=== PATIENT | male | born 1975 | race Caucasian/White ===

== ENCOUNTER 2021-05-21 05:33 | Inpatient (IN) | payer MEDICAID ==
[2021-05-21] MEDS ORDERED: Sodium Chloride 0.9% 10 ML Syringe FLUSH PRN (06:26)
[2021-05-21] MEDS ORDERED: Ondansetron 4 MG/2 ML SDV IVPUSH ONE (06:26)
[2021-05-21] MEDS ORDERED: Sodium Chloride 0.9% 1,000 ML IV ONE ×3 (06:26→07:09)
[2021-05-21] MEDS ORDERED: Ketorolac 15 MG/ML SDV IVPUSH ONE (06:26)
[2021-05-21] MEDS ORDERED: Acetaminophen 325 MG Tab PO ONE (06:29)
[2021-05-21 06:38] LABS: CARBON DIOXIDE,CO2 20.6 mmol/L (21.0-32.0); POTASSIUM,K 3.6 mmol/L (3.5-5.1)
[2021-05-21] MEDS: Sodium Chloride 0.9% 2.5 ML Syringe FLUSH PRN ×2 (06:53→12:25)
[2021-05-21] MEDS ORDERED: Piperacillin/Tazobactam 3.375 GM in Sodium Chloride 0.9% 50 ML IV ONE (06:55)
--- NOTE | 2021-05-21 07:07 | EDM.PDOC ---
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 Patient reports that he generally has a paracentesis as well as a thoracentesis scheduled monthly in [place] secondary to ascites and pleural effusions on the right side from his primary biliary sclerosis/cirrhosis. Patient reports his last paracentesis/thoracentesis was performed approximately 3 weeks ago. Patient presents to the ER today with fevers, hot and cold sweats, and generalized weakness x1 day. Patient reports he has no abdominal pain or discomfort. Patient reports he does feel that his abdomen is bloated and he feels uncomfortable from the bloated sensation and gets short of breath when he lays flat which is typical sensation of when he has ascites and pleural effusions requiring a paracentesis and thoracentesis. Patient denies any vomiting or change in bowels. Patient denies any dysuria, frequency, urgency. Patient reports decreased urinary output. Patient reports normal p.o. intake. Patient has any cough cold or rhinorrhea. Patient reports that he has not had his Covid vaccine. Patient reports that he had multiple negative Covid test in the past. Review of systems: As per history of present illness and below otherwise all systems reviewed and negative. Past medical history: As per history of present illness and as reviewed below otherwise noncontributory. Surgical history: As per history of present illness and as reviewed below otherwise noncontributory. Social history: No reported history of drug abuse. Family history: As per history of present illness and as reviewed below otherwise noncontributory. Physical exam: This patient was seen and evaluated during the 2019 SARS-CoV-2 novel coronavirus pandemic period. Community viral transmission is ongoing at time of this encounter and the emergency department is operating under pandemic response procedures. Constitutional: Patient is oriented to person, place, and time. Appears well- developed and well-nourished. No distress. HEENT: Dry mucous membranes Head: Normocephalic and atraumatic Eyes: Right eye exhibits no discharge. Left eye exhibits no discharge. Scleral icterus Neck: Normal range of motion. No tracheal deviation present. Cardiovascular: Tachycardic with regular rhythm. Pulmonary: Effort normal, no respiratory distress. Abdominal: Soft, distended, no rebound or guarding, no tenderness to palpation. Musculoskeletal: Normal range of motion Neurologic: Alert and oriented to person, place and time. Skin: [place], warm and dry. Jaundiced, warm to touch Psychiatric: Normal mood and affect. Behavior is normal. Judgment and thought content normal. Nursing note and vital signs have been reviewe Diagnostics: EKG: As interpreted by ER physician: [place]: Nonspecific ST-T wave abnormalities Normal axis No evidence of ST elevation NV Sinus tachycardia with a heart of 125 CBC, CMP, D-dimer, blood cultures x2, urinalysis, lactic acid, chest x-ray, INR, PTT Therapeutics: Toradol 15 mg IV NSS x1 L Tylenol 650 mg p.o. 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 Patient's presentation is concerning for sepsis. A sepsis work-up has been initiated here in the ED and the patient will get empiric treatment with Zosyn. Patient will need paracentesis for therapeutic as well as diagnostic purposes. Patient will be started on an NSS x30 mils per kilo. 7 AM: Care will be signed out to oncoming physician Dr. Amador. Definitive disposition and diagnosis as appropriate pending reevaluation and review of above. - Related Data Allergies Allergy/AdvReac Type Severity Reaction Status Date / Time cantaloupe Allergy Other Verified 05/21/21 06:00 kiwi Allergy Other Verified 05/21/21 06:00 nitrous oxide Allergy Other Verified 05/21/21 06:00 Home Meds: Home Meds Cholecalciferol (Vitamin D3) [Vitamin D3] 2,000 unit PO DAILY 05/21/21 [History] Eplerenone [Inspra] 50 mg PO DAILY 05/21/21 [History] Furosemide [Lasix] 40 mg PO DAILY 05/21/21 [History] Loperamide [Imodium] 2 mg PO TID PRN 05/21/21 [History] Rifaximin [Xifaxan] 550 mg PO BID 05/21/21 [History] methocarbamoL [Methocarbamol] 500 mg PO TID PRN 05/21/21 [History] Past Medical History Other Gastrointestinal History: UC. PSC - Infectious Disease History Infectious Disease History: Reports: Chicken Pox ED ROS GENERAL - Review of Systems Review Of Systems: See Below ED EXAM, GENERAL - Physical Exam Exam: See Below Departure - Departure Disposition: Refer to Observation Clinical Impression: Sepsis, Liver failure - Discharge Information Referrals: PCP,None [Primary Care Provider] - Forms: ED Department Discharge Sepsis Event Note (ED) - Evaluation Sepsis Screening Result: Possible Sepsis Risk <Mayur Amador - Last Filed: 05/21/21 12:26> ED RESPIRATORY PROCEDURES - Endotracheal Intubation Pre-Oxygenation: Assisted with BVM, 100% FiO2 Confirmed By: CO2 Indicator, Bilateral Breath Sounds Tube Secured By: By Provider Course - Vital Signs Text/Narrative:: 7:39 AM patient accepted in transfer from my partner whose shift has ended. He is being treated as sepsis. He has a lactate over 11. When he has been septic before its been from his peritoneal fluid. Patient has bedside ultrasound showing he has a massive amount of fluid in the bowel is in the posterior part of his abdomen. Plan peritoneal tap and fluid for analysis. We will also leave catheter and allow him with therapeutic drainage of is much as possible. He is gotten as much of 10 L in the past. Coags are adequate. 1021 after paracentesis at this time we have gotten 3 L of fluid off. Were unable to get the catheter to drain to suction so is draining into a dependent vessel. I discussed the case with Dr. Garza and he is coming to see the patient to decide if he thinks we can adequately manage him here without GI consult. Patient blood pressure has been between 60 and 90. He did tolerate Dilaudid. He tolerated 4 L of fluid being removed by gravity. Discussed with Dr. Garza who will see the patient and make a determination as to disposition. Due to a high probability of clinically significant, life threatening deterioration, the patient required my highest level of preparedness to intervene emergently and I personally spent this critical care time directly and personally managing the patient. This critical care time included obtaining a history; examining the patient; pulse oximetry; ordering and review of studies; arranging urgent treatment with development of a management plan; evaluation of patient's response to treatment; frequent reassessment; and, discussions with other providers. This critical care time was performed to assess and manage the high probability of imminent, life-threatening deterioration that could result in multi-organ failure. It was exclusive of separately billable procedures and treating other patients and teaching time..50 minutes 11:25 AM the patient has 5 L of fluid from his peritoneal tap. More albumin has been ordered. 12:07 PM patient's condition is stabilized somewhat he has had 7 L out and he is continuing to drain vigorously. Albumin repeat ordered Last Recorded V/S: Last Vital Signs Temp 36.7 C 05/21/21 11:49 Pulse 89 05/21/21 11:49 Resp 18 05/21/21 11:49 BP 83/48 L 05/21/21 11:49 Pulse Ox 98 05/21/21 11:49 - Orders/Labs/Meds Orders: Active Orders 24 hr Category Date Time Status Admission Status [Patient Status] [ADT] Stat ADT 05/21/21 12:24 Ordered EKG Documentation Completion [RC] AM Care 05/21/21 06:26 Active BODY FLUID, LIPASE Stat Lab 05/21/21 08:38 Received BODY FLUID, SPECIFIC GRAVITY Stat Lab 05/21/21 08:38 Received BODY FLUID, TOTAL BILIRUBIN Stat Lab 05/21/21 08:38 Received CULTURE BLOOD [BC] Stat Lab 05/21/21 05:51 Received CULTURE BLOOD [BC] Stat Lab 05/21/21 07:04 Received CULTURE, ANAEROBE & AEROBE [MREF] Stat Lab 05/21/21 08:38 Received PROCALCITONIN [REF] Stat Lab 05/21/21 05:51 Received Albumin 25% [Flexbumin 25%] 12.5 gm Med 05/21/21 12:15 Active Premix Bag 1 bag IV ONETIME Sodium Chloride 0.9% [Saline Flush] Med 05/21/21 06:26 Active 10 ml FLUSH ASDIRECTED PRN Sodium Chloride 0.9% [Saline Flush] Med 05/21/21 06:26 Active 2.5 ml FLUSH ASDIRECTED PRN Blood Culture x2 Reflex Set [OM.PC] Stat Oth 05/21/21 06:27 Ordered Saline Lock Insert [OM.PC] Stat Oth 05/21/21 06:26 Ordered Medication Orders Albumin Human 12.5 gm/ Premix 50 mls @ 100 mls/hr IV ONETIME ONE Stop: 05/21/21 12:44 Sodium Chloride (Sodium Chloride 0.9% 10 Ml Syringe) 10 ml FLUSH ASDIRECTED PRN PRN Reason: Keep Vein Open Last Admin: 05/21/21 06:53 Dose: 10 ml Documented by: IVELISSE Sodium Chloride (Sodium Chloride 0.9% 2.5 Ml Syringe) 2.5 ml FLUSH ASDIRECTED PRN PRN Reason: Keep Vein Open Last Admin: 05/21/21 06:53 Dose: 2.5 ml Documented by: IVELISSE Labs: Laboratory Tests 05/21/21 05/21/21 05/21/21 Range/Units 05:51 05:51 05:51 WBC 7.17 (4.0-11.0) K/uL RBC 4.38 L (4.50-5.90) M/uL Hgb 9.0 L (13.0-17.0) g/dL Hct 30.6 L (38.0-50.0) % MCV 69.9 L (80.0-98.0) fL MCH 20.5 L (27.0-32.0) pg MCHC 29.4 L (31.0-37.0) g/dL RDW Std Deviation 59.6 (28.0-62.0) fl RDW Coeff of Shaq 24 H (11.0-15.0) % Plt Count 97 L (150-400) K/uL Neut % (Auto) 90.9 H (48.0-80.0) % Lymph % (Auto) 6.7 L (16.0-40.0) % [place] % (Auto) 1.4 (0.0-15.0) % Eos % (Auto) 0.4 (0.0-7.0) % Baso % (Auto) 0.6 (0.0-1.5) % Neut # (Auto) 6.5 H (1.4-5.7) K/uL Lymph # (Auto) 0.5 L (0.6-2.4) K/uL [place] # (Auto) 0.1 (0.0-0.8) K/uL Eos # (Auto) 0.0 (0.0-0.7) K/uL Baso # (Auto) 0.0 (0.0-0.1) K/uL Nucleated RBC % 0.0 /100WBC Nucleated RBCs # 0 K/uL INR APTT (18.6-31.3) SEC D-Dimer, Quantitative (0.0-0.50) mg/L FEU Sodium 136 (136-148) mmol/L Potassium 3.6 (3.5-5.1) mmol/L Chloride 99 (98-107) mmol/L Carbon Dioxide 20.6 L (21.0-32.0) mmol/L BUN 25 H (7.0-18.0) mg/dL Creatinine 1.7 H (0.8-1.3) mg/dL Est Cr Clr Drug Dosing 64.47 mL/min Estimated GFR (MDRD) 44.0 ml/min Glucose 78 (74-106) mg/dL Lactic Acid (0.4-2.0) mmol/L Calcium 7.8 L (8.5-10.1) mg/dL Magnesium 1.8 (1.8-2.4) mg/dL Total Bilirubin 8.3 H (0.2-1.0) mg/dL AST 122 H (15-37) IU/L ALT 43 (14-63) IU/L Alkaline Phosphatase 527 H (46-116) U/L Total Protein 6.8 (6.4-8.2) g/dL Albumin 2.0 L (3.4-5.0) g/dL Globulin 4.8 H (2.6-4.0) g/dL Albumin/Globulin Ratio 0.4 L (0.9-1.6) Lipase 69 L (73-393) U/L Urine Color Urine Appearance Urine pH (5.0-8.0) Ur Specific [place] (1.001-1.035) Urine Protein (NEGATIVE) mg/dL Urine Glucose (UA) (NEGATIVE) mg/dL Urine Ketones (NEGATIVE) mg/dL Urine Occult Blood (NEGATIVE) Urine Nitrite (NEGATIVE) Urine Bilirubin (NEGATIVE) Urine Ictotest Urine Urobilinogen (<2.0) EU/dL Ur Leukocyte Esterase (NEGATIVE) Fluid Type Fluid Color Fluid Appearance Fluid pH Fluid WBC /uL Fluid RBC /uL Fluid Mononuclear Cell % Fl Polymorphonucl Cell % Fluid Glucose mg/dL Fluid Total Protein g/dL SARS-CoV-2 RNA (SHADY) NEGATIVE (NEGATIVE) 05/21/21 05/21/21 05/21/21 Range/Units 05:51 05:51 05:51 WBC (4.0-11.0) K/uL RBC (4.50-5.90) M/uL Hgb (13.0-17.0) g/dL Hct (38.0-50.0) % MCV (80.0-98.0) fL MCH (27.0-32.0) pg MCHC (31.0-37.0) g/dL RDW Std Deviation (28.0-62.0) fl RDW Coeff of Shaq (11.0-15.0) % Plt Count (150-400) K/uL Neut % (Auto) (48.0-80.0) % Lymph % (Auto) (16.0-40.0) % [place] % (Auto) (0.0-15.0) % Eos % (Auto) (0.0-7.0) % Baso % (Auto) (0.0-1.5) % Neut # (Auto) (1.4-5.7) K/uL Lymph # (Auto) (0.6-2.4) K/uL [place] # (Auto) (0.0-0.8) K/uL Eos # (Auto) (0.0-0.7) K/uL Baso # (Auto) (0.0-0.1) K/uL Nucleated RBC % /100WBC Nucleated RBCs # K/uL INR 1.33 APTT 26.4 (18.6-31.3) SEC D-Dimer, Quantitative 2.92 H (0.0-0.50) mg/L FEU Sodium (136-148) mmol/L Potassium (3.5-5.1) mmol/L Chloride (98-107) mmol/L Carbon Dioxide (21.0-32.0) mmol/L BUN (7.0-18.0) mg/dL Creatinine (0.8-1.3) mg/dL Est Cr Clr Drug Dosing mL/min Estimated GFR (MDRD) ml/min Glucose (74-106) mg/dL Lactic Acid 11.6 H* (0.4-2.0) mmol/L Calcium (8.5-10.1) mg/dL Magnesium (1.8-2.4) mg/dL Total Bilirubin (0.2-1.0) mg/dL AST (15-37) IU/L ALT (14-63) IU/L Alkaline Phosphatase (46-116) U/L Total Protein (6.4-8.2) g/dL Albumin (3.4-5.0) g/dL Globulin (2.6-4.0) g/dL Albumin/Globulin Ratio (0.9-1.6) Lipase (73-393) U/L Urine Color Urine Appearance Urine pH (5.0-8.0) Ur Specific [place] (1.001-1.035) Urine Protein (NEGATIVE) mg/dL Urine Glucose (UA) (NEGATIVE) mg/dL Urine Ketones (NEGATIVE) mg/dL Urine Occult Blood (NEGATIVE) Urine Nitrite (NEGATIVE) Urine Bilirubin (NEGATIVE) Urine Ictotest Urine Urobilinogen (<2.0) EU/dL Ur Leukocyte Esterase (NEGATIVE) Fluid Type Fluid Color Fluid Appearance Fluid pH Fluid WBC /uL Fluid RBC /uL Fluid Mononuclear Cell % Fl Polymorphonucl Cell % Fluid Glucose mg/dL Fluid Total Protein g/dL SARS-CoV-2 RNA (SHADY) (NEGATIVE) 05/21/21 05/21/21 05/21/21 Range/Units 07:05 08:38 08:38 WBC (4.0-11.0) K/uL RBC (4.50-5.90) M/uL Hgb (13.0-17.0) g/dL Hct (38.0-50.0) % MCV (80.0-98.0) fL MCH (27.0-32.0) pg MCHC (31.0-37.0) g/dL RDW Std Deviation (28.0-62.0) fl RDW Coeff of Shaq (11.0-15.0) % Plt Count (150-400) K/uL Neut % (Auto) (48.0-80.0) % Lymph % (Auto) (16.0-40.0) % [place] % (Auto) (0.0-15.0) % Eos % (Auto) (0.0-7.0) % Baso % (Auto) (0.0-1.5) % Neut # (Auto) (1.4-5.7) K/uL Lymph # (Auto) (0.6-2.4) K/uL [place] # (Auto) (0.0-0.8) K/uL Eos # (Auto) (0.0-0.7) K/uL Baso # (Auto) (0.0-0.1) K/uL Nucleated RBC % /100WBC Nucleated RBCs # K/uL INR APTT (18.6-31.3) SEC D-Dimer, Quantitative (0.0-0.50) mg/L FEU Sodium (136-148) mmol/L Potassium (3.5-5.1) mmol/L Chloride (98-107) mmol/L Carbon Dioxide (21.0-32.0) mmol/L BUN (7.0-18.0) mg/dL Creatinine (0.8-1.3) mg/dL Est Cr Clr Drug Dosing mL/min Estimated GFR (MDRD) ml/min Glucose (74-106) mg/dL Lactic Acid (0.4-2.0) mmol/L Calcium (8.5-10.1) mg/dL Magnesium (1.8-2.4) mg/dL Total Bilirubin (0.2-1.0) mg/dL AST (15-37) IU/L ALT (14-63) IU/L Alkaline Phosphatase (46-116) U/L Total Protein (6.4-8.2) g/dL Albumin (3.4-5.0) g/dL Globulin (2.6-4.0) g/dL Albumin/Globulin Ratio (0.9-1.6) Lipase (73-393) U/L Urine Color DARK YELLOW Urine Appearance CLEAR Urine pH 6.0 (5.0-8.0) Ur Specific [place] 1.020 (1.001-1.035) Urine Protein NEGATIVE (NEGATIVE) mg/dL Urine Glucose (UA) NEGATIVE (NEGATIVE) mg/dL Urine Ketones NEGATIVE (NEGATIVE) mg/dL Urine Occult Blood NEGATIVE (NEGATIVE) Urine Nitrite NEGATIVE (NEGATIVE) Urine Bilirubin MODERATE H (NEGATIVE) Urine Ictotest POSITIVE Urine Urobilinogen 0.2 (<2.0) EU/dL Ur Leukocyte Esterase NEGATIVE (NEGATIVE) Fluid Type PER PER Fluid Color YELLOW Fluid Appearance CLEAR Fluid pH 8.0 Fluid WBC 59 /uL Fluid RBC < 3000 /uL Fluid Mononuclear Cell 83 % Fl Polymorphonucl Cell 17 % Fluid Glucose 111 mg/dL Fluid Total Protein 0.7 g/dL SARS-CoV-2 RNA (SHADY) (NEGATIVE) 05/21/21 Range/Units 10:45 WBC (4.0-11.0) K/uL RBC (4.50-5.90) M/uL Hgb (13.0-17.0) g/dL Hct (38.0-50.0) % MCV (80.0-98.0) fL MCH (27.0-32.0) pg MCHC (31.0-37.0) g/dL RDW Std Deviation (28.0-62.0) fl RDW Coeff of Shaq (11.0-15.0) % Plt Count (150-400) K/uL Neut % (Auto) (48.0-80.0) % Lymph % (Auto) (16.0-40.0) % [place] % (Auto) (0.0-15.0) % Eos % (Auto) (0.0-7.0) % Baso % (Auto) (0.0-1.5) % Neut # (Auto) (1.4-5.7) K/uL Lymph # (Auto) (0.6-2.4) K/uL [place] # (Auto) (0.0-0.8) K/uL Eos # (Auto) (0.0-0.7) K/uL Baso # (Auto) (0.0-0.1) K/uL Nucleated RBC % /100WBC Nucleated RBCs # K/uL INR APTT (18.6-31.3) SEC D-Dimer, Quantitative (0.0-0.50) mg/L FEU Sodium (136-148) mmol/L Potassium (3.5-5.1) mmol/L Chloride (98-107) mmol/L Carbon Dioxide (21.0-32.0) mmol/L BUN (7.0-18.0) mg/dL Creatinine (0.8-1.3) mg/dL Est Cr Clr Drug Dosing mL/min Estimated GFR (MDRD) ml/min Glucose (74-106) mg/dL Lactic Acid 1.7 (0.4-2.0) mmol/L Calcium (8.5-10.1) mg/dL Magnesium (1.8-2.4) mg/dL Total Bilirubin (0.2-1.0) mg/dL AST (15-37) IU/L ALT (14-63) IU/L Alkaline Phosphatase (46-116) U/L Total Protein (6.4-8.2) g/dL Albumin (3.4-5.0) g/dL Globulin (2.6-4.0) g/dL Albumin/Globulin Ratio (0.9-1.6) Lipase (73-393) U/L Urine Color Urine Appearance Urine pH (5.0-8.0) Ur Specific [place] (1.001-1.035) Urine Protein (NEGATIVE) mg/dL Urine Glucose (UA) (NEGATIVE) mg/dL Urine Ketones (NEGATIVE) mg/dL Urine Occult Blood (NEGATIVE) Urine Nitrite (NEGATIVE) Urine Bilirubin (NEGATIVE) Urine Ictotest Urine Urobilinogen (<2.0) EU/dL Ur Leukocyte Esterase (NEGATIVE) Fluid Type Fluid Color Fluid Appearance Fluid pH Fluid WBC /uL Fluid RBC /uL Fluid Mononuclear Cell % Fl Polymorphonucl Cell % Fluid Glucose mg/dL Fluid Total Protein g/dL SARS-CoV-2 RNA (SHADY) (NEGATIVE) Meds: Medications Generic Name Dose Route Start Last Admin Trade Name Freq PRN Reason Stop Dose Admin Albumin Human 12.5 gm/ Premix 50 mls @ 100 mls/hr 05/21/21 12:15 IV 05/21/21 12:44 ONETIME ONE Sodium Chloride 10 ml 05/21/21 06:26 05/21/21 06:53 Sodium Chloride 0.9% 10 Ml Syringe FLUSH 10 ml ASDIRECTED PRN Administration Keep Vein Open Sodium Chloride 2.5 ml 05/21/21 06:26 05/21/21 06:53 Sodium Chloride 0.9% 2.5 Ml Syringe FLUSH 2.5 ml ASDIRECTED PRN Administration Keep Vein Open Discontinued Medications Generic Name Dose Route Start Last Admin Trade Name Freq PRN Reason Stop Dose Admin Acetaminophen 650 mg 05/21/21 06:29 05/21/21 06:54 Acetaminophen 325 Mg Tab PO 05/21/21 06:30 650 mg NOW ONE Administration Hydromorphone HCl 1 mg 05/21/21 09:40 05/21/21 09:51 Hydromorphone 1 Mg/Ml Syringe IVPUSH 05/21/21 09:41 1 mg ONETIME ONE Administration Hydromorphone HCl Confirm 05/21/21 09:41 05/21/21 10:46 Hydromorphone 1 Mg/Ml Syringe Administered 05/21/21 09:42 Not Given Dose 1 mg .ROUTE .STK-MED ONE Sodium Chloride 1,000 mls @ 999 mls/hr 05/21/21 06:26 05/21/21 06:53 Normal Saline IV 05/21/21 07:26 999 mls/hr .Bolus ONE Administration Piperacillin Sod/Tazobactam 50 mls @ 100 mls/hr 05/21/21 06:55 05/21/21 07:49 Sod 3.375 gm/ Sodium Chloride IV 05/21/21 07:24 100 mls/hr ONETIME ONE Administration Sodium Chloride 1,000 mls @ 999 mls/hr 05/21/21 07:09 05/21/21 07:58 Normal Saline IV 05/21/21 08:09 999 mls/hr .Bolus ONE Administration Sodium Chloride 1,000 mls @ 999 mls/hr 05/21/21 07:09 05/21/21 07:55 Normal Saline IV 05/21/21 08:09 999 mls/hr .Bolus ONE Administration Albumin Human 25 gm/ Premix 100 mls @ 100 mls/hr 05/21/21 08:15 05/21/21 08:22 IV 05/21/21 09:14 100 mls/hr ONETIME ONE Administration Norepinephrine Bitartrate Confirm 05/21/21 08:15 05/21/21 10:46 Norepinephr-0.9% Nacl 4 Mg/250 Administered 05/21/21 08:16 Not Given Dose 4 mg in 250 mls @ as directed IV .STK-MED ONE Albumin Human 12.5 gm/ Premix 50 mls @ 100 mls/hr 05/21/21 11:30 05/21/21 11:33 IV 05/21/21 11:59 100 mls/hr ONETIME ONE Administration Ketorolac Tromethamine 15 mg 05/21/21 06:26 05/21/21 06:54 Ketorolac 15 Mg/Ml Sdv IVPUSH 05/21/21 06:27 15 mg ONETIME ONE Administration Lidocaine HCl 10 ml 05/21/21 07:35 05/21/21 10:47 Lidocaine 1% 10 Ml Mdv INJECT 05/21/21 07:36 Not Given ONETIME ONE Ondansetron HCl 4 mg 05/21/21 06:26 05/21/21 06:54 Ondansetron 4 Mg/2 Ml Sdv IVPUSH 05/21/21 06:27 4 mg ONETIME ONE Administration Departure - Departure Time of Disposition: 12:26 Condition: Good Sepsis Event Note (ED) - Focused Exam Vital Signs: Vital Signs Temp Temp Pulse Resp BP Pulse Ox 05/21/21 11:49 36.7 C 89 18 83/48 L 98 05/21/21 11:23 86 17 85/45 L 97 05/21/21 11:02 84 18 82/42 L 98 05/21/21 10:47 87 18 84/49 L 99 05/21/21 10:29 37.0 C 92 18 76/36 L 97 05/21/21 10:05 95 18 92/49 L 98 05/21/21 09:40 97 18 90/41 L 97 05/21/21 09:20 103 H 18 70/28 L 98 05/21/21 09:05 103 H 17 85/47 L 97 05/21/21 08:50 100 18 76/39 L 96 05/21/21 08:35 101 H 77/45 L 97 05/21/21 08:24 103 H 17 77/37 L 99 05/21/21 08:10 108 H 17 69/37 L 94 L 05/21/21 08:01 104 H 18 82/39 L 96 05/21/21 07:31 105 H 18 86/43 L 95 05/21/21 07:02 110 H 18 91/46 L 95 05/21/21 06:54 38.2 C H 05/21/21 06:25 122 H 18 85/47 L 95 05/21/21 06:01 38.2 C H 136 H 32 H 92/53 L 96 - My Orders Last 24 Hours: My Active Orders 05/21/21 08:38 BODY FLUID, LIPASE Stat BODY FLUID, SPECIFIC GRAVITY Stat BODY FLUID, TOTAL BILIRUBIN Stat CULTURE, ANAEROBE & AEROBE [MREF] Stat 05/21/21 12:15 Albumin 25% [Flexbumin 25%] 12.5 gm Premix Bag 1 bag IV ONETIME 05/21/21 12:24 Admission Status [Patient Status] [ADT] Stat - Assessment/Plan Last 24 Hours: My Active Orders 05/21/21 08:38 BODY FLUID, LIPASE Stat BODY FLUID, SPECIFIC GRAVITY Stat BODY FLUID, TOTAL BILIRUBIN Stat CULTURE, ANAEROBE & AEROBE [MREF] Stat 05/21/21 12:15 Albumin 25% [Flexbumin 25%] 12.5 gm Premix Bag 1 bag IV ONETIME 05/21/21 12:24 Admission Status [Patient Status] [ADT] Stat Paracentesis - Paracentesis Paracentesis Indication: ascites Location: RLQ Skin prep: Sterile Drapes, Chlorhexidine Ultrasound guided: Yes Local anesthesia: lidocaine 1 % Local anesthesia volume: 5cc Number of Attempts: 1 Device Used: 8 Fr kit device Fluid: yellow, clear Fluids sent: gram stain and culture, cell count, protein, glucose Complications: No Dressing: adhesive dressing
--- NOTE | 2021-05-21 07:26 | CR ---
HISTORY: Shortness of breath. COMPARISON: None. FINDINGS: Portable frontal view of the chest. There is elevation of the right hemidiaphragm. No focal infiltrate. Heart size and pulmonary vascularity appear within normal limits. Dictated by Debra Mcallister MD @ 05/21/2021 7:24:[address] Debra Mcallister @ May 21 2021 7:24AM
[2021-05-21] MEDS ORDERED: Lidocaine 1% 10 ML MDV INJECT ONE (07:35)
[2021-05-21] MEDS ORDERED: Albumin 25% 12.5 GM/50 ML Bag IV ONE ×4 (08:04→13:51)
[2021-05-21] MEDS ORDERED: Albumin 25% 25 GM in Premix Bag 1 BAG IV ONE (08:15)
[2021-05-21] MEDS ORDERED: HYDROmorphone 1 MG/ML Syringe IVPUSH ONE (09:40)
[2021-05-21] MEDS ORDERED: HYDROmorphone 1 MG/ML Syringe ONE (09:41)
[2021-05-21] MEDS ORDERED: Albumin 25% 12.5 GM in Premix Bag 1 BAG IV ONE ×3 (11:30→14:00)
--- NOTE | 2021-05-21 15:34 | PCM.HP.2 ---
H&P History of Present Illness - General Date of Service: 05/21/21 Admit Problem/Dx: Admission Diagnosis/Problem Admission Diagnosis/Problem Ascites - History of Present Illness Initial Comments - Free Text/Narative: 46 yo male with pmh of liver cirhosis who presents to the ED with complaints of abdomen distension and shortness of breath. PAtient reports recurrrent ascities for which he has monthly thoracentesis and paracentesis. His last paracenteiss was a month ago and he had 10 L drained. IN the ED he ws noted to have a temperate of 38.2, HR of 120s, BP in the 80s-90s systolic. His lactic acid ws 11. He was given 4 liters of fluid. Theraputic paracentesis was performed by ED physicain and 8 liters were drained follow by albumin replacement. Patient currently deies any fevers, chilss, shortness of breath, or abdominal pain. - Related Data Allergies/Adverse Reactions: Allergies Allergy/AdvReac Type Severity Reaction Status Date / Time cantaloupe Allergy Other Verified 05/21/21 06:00 kiwi Allergy Other Verified 05/21/21 06:00 nitrous oxide Allergy Other Verified 05/21/21 06:00 Home Medications: Home Meds Cholecalciferol (Vitamin D3) [Vitamin D3] 2,000 unit PO DAILY 05/21/21 [History] Eplerenone [Inspra] 100 mg PO BID 05/21/21 [History] Furosemide [Lasix] 40 mg PO BID 05/21/21 [History] Loperamide [Imodium] 2 mg PO TID PRN 05/21/21 [History] Rifaximin [Xifaxan] 550 mg PO BID 05/21/21 [History] methocarbamoL [Methocarbamol] 500 mg PO TID PRN 05/21/21 [History] Past Medical History Other Gastrointestinal History: UC. PSC - Infectious Disease History Infectious Disease History: Reports: Chicken Pox Social & Family History - Tobacco Use Tobacco Use Status *Q: Never Tobacco User Second Hand Smoke Exposure: No - Caffeine Use Caffeine Use: Reports: None - Recreational Drug Use Recreational Drug Use: No H&P Review of Systems - Review of Systems: Review Of Systems: Comprehensive ROS is negative, except as noted in HPI. Exam - Exam Exam: See Below - Vital Signs Vital Signs: Last Vital Signs Temp 36.6 C 07/18/21 12:47 Pulse 78 05/21/21 13:02 Resp 18 05/21/21 13:02 BP 88/47 L 05/21/21 13:02 Pulse Ox 98 05/21/21 13:02 Weight: 75.4 kg - Exam General: Alert, Oriented HEENT: Mucosa Moist & [place] Lungs: Clear to Auscultation, Normal Respiratory Effort Cardiovascular: Regular Rate, Regular Rhythm GI/Abdominal Exam: Normal Bowel Sounds, Soft, Non-Tender Skin: Warm, Dry, Intact - Patient Data Lab Results Last 24 hrs: Laboratory Results - last 24 hr 05/21/21 05/21/21 05/21/21 Range/Units 05:51 05:51 05:51 WBC 7.17 (4.0-11.0) K/uL RBC 4.38 L (4.50-5.90) M/uL Hgb 9.0 L (13.0-17.0) g/dL Hct 30.6 L (38.0-50.0) % MCV 69.9 L (80.0-98.0) fL MCH 20.5 L (27.0-32.0) pg MCHC 29.4 L (31.0-37.0) g/dL RDW Std Deviation 59.6 (28.0-62.0) fl RDW Coeff of Shaq 24 H (11.0-15.0) % Plt Count 97 L (150-400) K/uL Neut % (Auto) 90.9 H (48.0-80.0) % Lymph % (Auto) 6.7 L (16.0-40.0) % [place] % (Auto) 1.4 (0.0-15.0) % Eos % (Auto) 0.4 (0.0-7.0) % Baso % (Auto) 0.6 (0.0-1.5) % Neut # (Auto) 6.5 H (1.4-5.7) K/uL Lymph # (Auto) 0.5 L (0.6-2.4) K/uL [place] # (Auto) 0.1 (0.0-0.8) K/uL Eos # (Auto) 0.0 (0.0-0.7) K/uL Baso # (Auto) 0.0 (0.0-0.1) K/uL Nucleated RBC % 0.0 /100WBC Nucleated RBCs # 0 K/uL INR APTT (18.6-31.3) SEC D-Dimer, Quantitative (0.0-0.50) mg/L FEU Sodium 136 (136-148) mmol/L Potassium 3.6 (3.5-5.1) mmol/L Chloride 99 (98-107) mmol/L Carbon Dioxide 20.6 L (21.0-32.0) mmol/L BUN 25 H (7.0-18.0) mg/dL Creatinine 1.7 H (0.8-1.3) mg/dL Est Cr Clr Drug Dosing 64.47 mL/min Estimated GFR (MDRD) 44.0 ml/min Glucose 78 (74-106) mg/dL Lactic Acid (0.4-2.0) mmol/L Calcium 7.8 L (8.5-10.1) mg/dL Magnesium 1.8 (1.8-2.4) mg/dL Total Bilirubin 8.3 H (0.2-1.0) mg/dL AST 122 H (15-37) IU/L ALT 43 (14-63) IU/L Alkaline Phosphatase 527 H (46-116) U/L Total Protein 6.8 (6.4-8.2) g/dL Albumin 2.0 L (3.4-5.0) g/dL Globulin 4.8 H (2.6-4.0) g/dL Albumin/Globulin Ratio 0.4 L (0.9-1.6) Lipase 69 L (73-393) U/L Urine Color Urine Appearance Urine pH (5.0-8.0) Ur Specific [place] (1.001-1.035) Urine Protein (NEGATIVE) mg/dL Urine Glucose (UA) (NEGATIVE) mg/dL Urine Ketones (NEGATIVE) mg/dL Urine Occult Blood (NEGATIVE) Urine Nitrite (NEGATIVE) Urine Bilirubin (NEGATIVE) Urine Ictotest Urine Urobilinogen (<2.0) EU/dL Ur Leukocyte Esterase (NEGATIVE) Fluid Type Fluid Color Fluid Appearance Fluid pH Fluid WBC /uL Fluid RBC /uL Fluid Mononuclear Cell % Fl Polymorphonucl Cell % Fluid Glucose mg/dL Fluid Total Protein g/dL SARS-CoV-2 RNA (SHADY) NEGATIVE (NEGATIVE) 05/21/21 05/21/21 05/21/21 Range/Units 05:51 05:51 05:51 WBC (4.0-11.0) K/uL RBC (4.50-5.90) M/uL Hgb (13.0-17.0) g/dL Hct (38.0-50.0) % MCV (80.0-98.0) fL MCH (27.0-32.0) pg MCHC (31.0-37.0) g/dL RDW Std Deviation (28.0-62.0) fl RDW Coeff of Shaq (11.0-15.0) % Plt Count (150-400) K/uL Neut % (Auto) (48.0-80.0) % Lymph % (Auto) (16.0-40.0) % [place] % (Auto) (0.0-15.0) % Eos % (Auto) (0.0-7.0) % Baso % (Auto) (0.0-1.5) % Neut # (Auto) (1.4-5.7) K/uL Lymph # (Auto) (0.6-2.4) K/uL [place] # (Auto) (0.0-0.8) K/uL Eos # (Auto) (0.0-0.7) K/uL Baso # (Auto) (0.0-0.1) K/uL Nucleated RBC % /100WBC Nucleated RBCs # K/uL INR 1.33 APTT 26.4 (18.6-31.3) SEC D-Dimer, Quantitative 2.92 H (0.0-0.50) mg/L FEU Sodium (136-148) mmol/L Potassium (3.5-5.1) mmol/L Chloride (98-107) mmol/L Carbon Dioxide (21.0-32.0) mmol/L BUN (7.0-18.0) mg/dL Creatinine (0.8-1.3) mg/dL Est Cr Clr Drug Dosing mL/min Estimated GFR (MDRD) ml/min Glucose (74-106) mg/dL Lactic Acid 11.6 H* (0.4-2.0) mmol/L Calcium (8.5-10.1) mg/dL Magnesium (1.8-2.4) mg/dL Total Bilirubin (0.2-1.0) mg/dL AST (15-37) IU/L ALT (14-63) IU/L Alkaline Phosphatase (46-116) U/L Total Protein (6.4-8.2) g/dL Albumin (3.4-5.0) g/dL Globulin (2.6-4.0) g/dL Albumin/Globulin Ratio (0.9-1.6) Lipase (73-393) U/L Urine Color Urine Appearance Urine pH (5.0-8.0) Ur Specific [place] (1.001-1.035) Urine Protein (NEGATIVE) mg/dL Urine Glucose (UA) (NEGATIVE) mg/dL Urine Ketones (NEGATIVE) mg/dL Urine Occult Blood (NEGATIVE) Urine Nitrite (NEGATIVE) Urine Bilirubin (NEGATIVE) Urine Ictotest Urine Urobilinogen (<2.0) EU/dL Ur Leukocyte Esterase (NEGATIVE) Fluid Type Fluid Color Fluid Appearance Fluid pH Fluid WBC /uL Fluid RBC /uL Fluid Mononuclear Cell % Fl Polymorphonucl Cell % Fluid Glucose mg/dL Fluid Total Protein g/dL SARS-CoV-2 RNA (SHADY) (NEGATIVE) 05/21/21 05/21/21 05/21/21 Range/Units 07:05 08:38 08:38 WBC (4.0-11.0) K/uL RBC (4.50-5.90) M/uL Hgb (13.0-17.0) g/dL Hct (38.0-50.0) % MCV (80.0-98.0) fL MCH (27.0-32.0) pg MCHC (31.0-37.0) g/dL RDW Std Deviation (28.0-62.0) fl RDW Coeff of Shaq (11.0-15.0) % Plt Count (150-400) K/uL Neut % (Auto) (48.0-80.0) % Lymph % (Auto) (16.0-40.0) % [place] % (Auto) (0.0-15.0) % Eos % (Auto) (0.0-7.0) % Baso % (Auto) (0.0-1.5) % Neut # (Auto) (1.4-5.7) K/uL Lymph # (Auto) (0.6-2.4) K/uL [place] # (Auto) (0.0-0.8) K/uL Eos # (Auto) (0.0-0.7) K/uL Baso # (Auto) (0.0-0.1) K/uL Nucleated RBC % /100WBC Nucleated RBCs # K/uL INR APTT (18.6-31.3) SEC D-Dimer, Quantitative (0.0-0.50) mg/L FEU Sodium (136-148) mmol/L Potassium (3.5-5.1) mmol/L Chloride (98-107) mmol/L Carbon Dioxide (21.0-32.0) mmol/L BUN (7.0-18.0) mg/dL Creatinine (0.8-1.3) mg/dL Est Cr Clr Drug Dosing mL/min Estimated GFR (MDRD) ml/min Glucose (74-106) mg/dL Lactic Acid (0.4-2.0) mmol/L Calcium (8.5-10.1) mg/dL Magnesium (1.8-2.4) mg/dL Total Bilirubin (0.2-1.0) mg/dL AST (15-37) IU/L ALT (14-63) IU/L Alkaline Phosphatase (46-116) U/L Total Protein (6.4-8.2) g/dL Albumin (3.4-5.0) g/dL Globulin (2.6-4.0) g/dL Albumin/Globulin Ratio (0.9-1.6) Lipase (73-393) U/L Urine Color DARK YELLOW Urine Appearance CLEAR Urine pH 6.0 (5.0-8.0) Ur Specific [place] 1.020 (1.001-1.035) Urine Protein NEGATIVE (NEGATIVE) mg/dL Urine Glucose (UA) NEGATIVE (NEGATIVE) mg/dL Urine Ketones NEGATIVE (NEGATIVE) mg/dL Urine Occult Blood NEGATIVE (NEGATIVE) Urine Nitrite NEGATIVE (NEGATIVE) Urine Bilirubin MODERATE H (NEGATIVE) Urine Ictotest POSITIVE Urine Urobilinogen 0.2 (<2.0) EU/dL Ur Leukocyte Esterase NEGATIVE (NEGATIVE) Fluid Type PER PER Fluid Color YELLOW Fluid Appearance CLEAR Fluid pH 8.0 Fluid WBC 59 /uL Fluid RBC < 3000 /uL Fluid Mononuclear Cell 83 % Fl Polymorphonucl Cell 17 % Fluid Glucose 111 mg/dL Fluid Total Protein 0.7 g/dL SARS-CoV-2 RNA (SHADY) (NEGATIVE) 05/21/21 Range/Units 10:45 WBC (4.0-11.0) K/uL RBC (4.50-5.90) M/uL Hgb (13.0-17.0) g/dL Hct (38.0-50.0) % MCV (80.0-98.0) fL MCH (27.0-32.0) pg MCHC (31.0-37.0) g/dL RDW Std Deviation (28.0-62.0) fl RDW Coeff of Shaq (11.0-15.0) % Plt Count (150-400) K/uL Neut % (Auto) (48.0-80.0) % Lymph % (Auto) (16.0-40.0) % [place] % (Auto) (0.0-15.0) % Eos % (Auto) (0.0-7.0) % Baso % (Auto) (0.0-1.5) % Neut # (Auto) (1.4-5.7) K/uL Lymph # (Auto) (0.6-2.4) K/uL [place] # (Auto) (0.0-0.8) K/uL Eos # (Auto) (0.0-0.7) K/uL Baso # (Auto) (0.0-0.1) K/uL Nucleated RBC % /100WBC Nucleated RBCs # K/uL INR APTT (18.6-31.3) SEC D-Dimer, Quantitative (0.0-0.50) mg/L FEU Sodium (136-148) mmol/L Potassium (3.5-5.1) mmol/L Chloride (98-107) mmol/L Carbon Dioxide (21.0-32.0) mmol/L BUN (7.0-18.0) mg/dL Creatinine (0.8-1.3) mg/dL Est Cr Clr Drug Dosing mL/min Estimated GFR (MDRD) ml/min Glucose (74-106) mg/dL Lactic Acid 1.7 (0.4-2.0) mmol/L Calcium (8.5-10.1) mg/dL Magnesium (1.8-2.4) mg/dL Total Bilirubin (0.2-1.0) mg/dL AST (15-37) IU/L ALT (14-63) IU/L Alkaline Phosphatase (46-116) U/L Total Protein (6.4-8.2) g/dL Albumin (3.4-5.0) g/dL Globulin (2.6-4.0) g/dL Albumin/Globulin Ratio (0.9-1.6) Lipase (73-393) U/L Urine Color Urine Appearance Urine pH (5.0-8.0) Ur Specific [place] (1.001-1.035) Urine Protein (NEGATIVE) mg/dL Urine Glucose (UA) (NEGATIVE) mg/dL Urine Ketones (NEGATIVE) mg/dL Urine Occult Blood (NEGATIVE) Urine Nitrite (NEGATIVE) Urine Bilirubin (NEGATIVE) Urine Ictotest Urine Urobilinogen (<2.0) EU/dL Ur Leukocyte Esterase (NEGATIVE) Fluid Type Fluid Color Fluid Appearance Fluid pH Fluid WBC /uL Fluid RBC /uL Fluid Mononuclear Cell % Fl Polymorphonucl Cell % Fluid Glucose mg/dL Fluid Total Protein g/dL SARS-CoV-2 RNA (SHADY) (NEGATIVE) Result Diagrams: 05/21/21 05:51 05/21/21 05:51 Sepsis Event Note - Evaluation Sepsis Screening Result: Possible Sepsis Risk - Focused Exam Vital Signs: Vital Signs Temp Temp Pulse Resp BP Pulse Ox 05/21/21 13:02 78 18 88/47 L 98 05/21/21 12:47 36.6 C 79 19 69/41 L 98 05/21/21 11:49 36.7 C 89 18 83/48 L 98 05/21/21 11:23 86 17 85/45 L 97 05/21/21 11:02 84 18 82/42 L 98 05/21/21 10:47 87 18 84/49 L 99 05/21/21 10:29 37.0 C 92 18 76/36 L 97 05/21/21 10:05 95 18 92/49 L 98 05/21/21 09:40 97 18 90/41 L 97 05/21/21 09:20 103 H 18 70/28 L 98 05/21/21 09:05 103 H 17 85/47 L 97 05/21/21 08:50 100 18 76/39 L 96 05/21/21 08:35 101 H 77/45 L 97 05/21/21 08:24 103 H 17 77/37 L 99 05/21/21 08:10 108 H 17 69/37 L 94 L 05/21/21 08:01 104 H 18 82/39 L 96 05/21/21 07:31 105 H 18 86/43 L 95 05/21/21 07:02 110 H 18 91/46 L 95 05/21/21 06:54 38.2 C H 05/21/21 06:25 122 H 18 85/47 L 95 05/21/21 06:01 38.2 C H 136 H 32 H 92/53 L 96 Problem List Initiated/Reviewed/Updated: Yes Orders Last 24hrs: Active Orders 24 hr Category Date Time Status Admission Status [Patient Status] [ADT] Stat ADT 05/21/21 12:24 Active EKG Documentation Completion [RC] AM Care 05/21/21 06:26 Active Regular Diet [DIET] Diet 05/21/21 Lunch Active BODY FLUID, LIPASE Stat Lab 05/21/21 08:38 Received BODY FLUID, SPECIFIC GRAVITY Stat Lab 05/21/21 08:38 Received BODY FLUID, TOTAL BILIRUBIN Stat Lab 05/21/21 08:38 Received CULTURE BLOOD [BC] Stat Lab 05/21/21 05:51 Received CULTURE BLOOD [BC] Stat Lab 05/21/21 07:04 Received CULTURE, ANAEROBE & AEROBE [MREF] Stat Lab 05/21/21 08:38 Received PROCALCITONIN [REF] Stat Lab 05/21/21 05:51 Received Piperacillin/Tazobactam [Piperacil-Tazobact] 3.375 gm Med 05/21/21 15:45 Ordered Sodium Chloride 0.9% [Normal Saline] 50 ml IV Q6H Sodium Chloride 0.9% [Saline Flush] Med 05/21/21 06:26 Active 10 ml FLUSH ASDIRECTED PRN Sodium Chloride 0.9% [Saline Flush] Med 05/21/21 06:26 Active 2.5 ml FLUSH ASDIRECTED PRN Blood Culture x2 Reflex Set [OM.PC] Stat Oth 05/21/21 06:27 Ordered Saline Lock Insert [OM.PC] Stat Oth 05/21/21 06:26 Ordered Medication Orders Piperacillin Sod/Tazobactam (Sod 3.375 gm/ Sodium Chloride) 50 mls @ 100 mls/hr IV Q6H HUGH Sodium Chloride (Sodium Chloride 0.9% 10 Ml Syringe) 10 ml FLUSH ASDIRECTED PRN PRN Reason: Keep Vein Open Last Admin: 05/21/21 06:53 Dose: 10 ml Documented by: [id number] Sodium Chloride (Sodium Chloride 0.9% 2.5 Ml Syringe) 2.5 ml FLUSH ASDIRECTED PRN PRN Reason: Keep Vein Open Last Admin: 05/21/21 12:25 Dose: 2.5 ml Documented by: Admin: 05/21/21 06:53 Dose: 2.5 ml Documented by: [id number] Assessment/Plan Comment:: 46 yo male with liver cirrhosis presenting with shortness of breath and abdominal distension from ascities. 8 Liters have been drained from paracentesis. We will continue to monitor due to borderline low blood pressures and temperature. Patient is on Zosyn until infecion has been ruled out.
[2021-05-21] MEDS: Piperacillin/Tazobactam 3.375 GM in Sodium Chloride 0.9% 50 ML IV SCH ×2 (17:37→22:10)
[2021-05-21] MEDS ORDERED: VANCOmycin 1.75 GM/350 ML 1.75 GM in Premix Bag 1 BAG IV ONE (19:00)
[2021-05-21 19:23] LABS: CARBON DIOXIDE,CO2 26.9 mmol/L (21.0-32.0); POTASSIUM,K 3.3 mmol/L (3.5-5.1)
--- NOTE | 2021-05-21 19:58 | PCM.SN.2 ---
- Free Text/Narrative Note: Blood cultures growing out gram positive cultures. Vancomycin was added to blood cultures. Sepsis focus exam was performed and patient appears appropriately fluid resuscitated. However I have low suspicion for sepsis. Patient's blood pressures are borderline low but he appears to be tolerating it well, considering his liver cirrhosis this could be normal for him.
[2021-05-21] MEDS: RIFAXIMIN 550 MG PO SCH (23:03)
[2021-05-21] MEDS: Loperamide 2 MG Cap PO PRN (23:03)
[2021-05-22] MEDS: Piperacillin/Tazobactam 3.375 GM in Sodium Chloride 0.9% 50 ML IV SCH ×4 (02:52→21:32)
[2021-05-22 06:19] LABS: CARBON DIOXIDE,CO2 22.7 mmol/L (21.0-32.0); POTASSIUM,K 3.2 mmol/L (3.5-5.1)
[2021-05-22] MEDS: Loperamide 2 MG Cap PO PRN ×3 (06:22→23:17)
[2021-05-22] MEDS: RIFAXIMIN 550 MG PO SCH ×2 (09:33→21:31)
[2021-05-22] MEDS ORDERED: Potassium Chloride 20 MEQ Tab.ER PO ONE (10:54)
--- NOTE | 2021-05-22 12:40 | PCM.PN ---
- General Info Date of Service: 05/22/21 Admission Dx/Problem (Free Text): Admission Diagnosis/Problem Admission Diagnosis/Problem Ascites Subjective Update: Patient seen at bedside, no acute distress, no abdominal pain, no shortness of breath, tolerated paracentesis well. Drop in hemoglobin but patient has no signs of active GI bleed. Patient states that in the past he has had low hemoglobin where he required several units of PRBC. Patient states his baseline hemoglobin is around 9. No fever, chills, nausea, vomiting, black stools, bloody stools, hematemesis. Functional Status: Reports: Tolerating Diet, Ambulating, Urinating - Review of Systems General: Reports: Weakness. Denies: Fever, Fatigue Pulmonary: Denies: Shortness of Breath Cardiovascular: Denies: Chest Pain, Palpitations Gastrointestinal: Denies: Abdominal Pain, Constipation, Decreased Appetite Genitourinary: Denies: Dysuria, Frequency, Burning Musculoskeletal: Denies: Neck Pain, Shoulder Pain, Arm Pain Skin: Denies: Cyanosis, Jaundice, Mottled - Patient Data Vitals - Most Recent: Last Vital Signs Temp 36.3 C 05/22/21 09:00 Pulse 84 05/22/21 09:00 Resp 16 05/22/21 09:00 BP 90/57 L 05/22/21 09:00 Pulse Ox 97 05/22/21 09:00 Weight - Most Recent: 75.4 kg I&O - Last 24 Hours: Intake & Output 05/21/21 05/22/21 05/22/21 22:59 06:59 14:59 Intake Total 690 1030 Output Total 1300 500 Balance -610 530 Lab Results Last 24 Hours: Laboratory Results - last 24 hr 05/21/21 05/21/21 05/21/21 Range/Units 19:02 19:02 19:02 WBC 3.10 L (4.0-11.0) K/uL RBC 3.70 L (4.50-5.90) M/uL Hgb 7.6 L (13.0-17.0) g/dL Hct 25.9 L (38.0-50.0) % MCV 70.0 L (80.0-98.0) fL MCH 20.5 L (27.0-32.0) pg MCHC 29.3 L (31.0-37.0) g/dL RDW Std Deviation 58.9 (28.0-62.0) fl RDW Coeff of Shaq 23 H (11.0-15.0) % Plt Count 67 L (150-400) K/uL MPV (7.40-12.00) fL Neut % (Auto) 70.8 (48.0-80.0) % Lymph % (Auto) 13.5 L (16.0-40.0) % [place] % (Auto) 14.8 (0.0-15.0) % Eos % (Auto) 0.6 (0.0-7.0) % Baso % (Auto) 0.3 (0.0-1.5) % Neut # (Auto) 2.2 (1.4-5.7) K/uL Lymph # (Auto) 0.4 L (0.6-2.4) K/uL [place] # (Auto) 0.5 (0.0-0.8) K/uL Eos # (Auto) 0.0 (0.0-0.7) K/uL Baso # (Auto) 0.0 (0.0-0.1) K/uL Nucleated RBC % 0.0 /100WBC Nucleated RBCs # 0 K/uL Sodium 138 (136-148) mmol/L Potassium 3.3 L (3.5-5.1) mmol/L Chloride 103 (98-107) mmol/L Carbon Dioxide 26.9 (21.0-32.0) mmol/L BUN 29 H (7.0-18.0) mg/dL Creatinine 1.6 H (0.8-1.3) mg/dL Est Cr Clr Drug Dosing 62.83 mL/min Estimated GFR (MDRD) 47.2 ml/min Glucose 102 (74-106) mg/dL Lactic Acid 2.1 H* (0.4-2.0) mmol/L Calcium 7.7 L (8.5-10.1) mg/dL Total Bilirubin (0.2-1.0) mg/dL AST (15-37) IU/L ALT (14-63) IU/L Alkaline Phosphatase (46-116) U/L Total Protein (6.4-8.2) g/dL Albumin (3.4-5.0) g/dL Globulin (2.6-4.0) g/dL Albumin/Globulin Ratio (0.9-1.6) Crossmatch 05/22/21 05/22/21 05/22/21 Range/Units 01:00 05:30 05:30 WBC 3.46 L (4.0-11.0) K/uL RBC 3.66 L (4.50-5.90) M/uL Hgb 7.5 L (13.0-17.0) g/dL Hct 25.7 L (38.0-50.0) % MCV 70.2 L (80.0-98.0) fL MCH 20.5 L (27.0-32.0) pg MCHC 29.2 L (31.0-37.0) g/dL RDW Std Deviation 58.8 (28.0-62.0) fl RDW Coeff of Shaq 23 H (11.0-15.0) % Plt Count 54 L (150-400) K/uL MPV (7.40-12.00) fL Neut % (Auto) (48.0-80.0) % Lymph % (Auto) (16.0-40.0) % [place] % (Auto) (0.0-15.0) % Eos % (Auto) (0.0-7.0) % Baso % (Auto) (0.0-1.5) % Neut # (Auto) (1.4-5.7) K/uL Lymph # (Auto) (0.6-2.4) K/uL [place] # (Auto) (0.0-0.8) K/uL Eos # (Auto) (0.0-0.7) K/uL Baso # (Auto) (0.0-0.1) K/uL Nucleated RBC % 0.0 /100WBC Nucleated RBCs # 0 K/uL Sodium 134 L (136-148) mmol/L Potassium 3.2 L (3.5-5.1) mmol/L Chloride 102 (98-107) mmol/L Carbon Dioxide 22.7 (21.0-32.0) mmol/L BUN 29 H (7.0-18.0) mg/dL Creatinine 1.5 H (0.8-1.3) mg/dL Est Cr Clr Drug Dosing 67.02 mL/min Estimated GFR (MDRD) 50.8 ml/min Glucose 101 (74-106) mg/dL Lactic Acid 1.8 (0.4-2.0) mmol/L Calcium 7.5 L (8.5-10.1) mg/dL Total Bilirubin 6.1 H (0.2-1.0) mg/dL AST 71 H (15-37) IU/L ALT 31 (14-63) IU/L Alkaline Phosphatase 345 H (46-116) U/L Total Protein 5.6 L (6.4-8.2) g/dL Albumin 2.0 L (3.4-5.0) g/dL Globulin 3.6 (2.6-4.0) g/dL Albumin/Globulin Ratio 0.6 L (0.9-1.6) Crossmatch 05/22/21 Range/Units 11:30 WBC (4.0-11.0) K/uL RBC (4.50-5.90) M/uL Hgb (13.0-17.0) g/dL Hct (38.0-50.0) % MCV (80.0-98.0) fL MCH (27.0-32.0) pg MCHC (31.0-37.0) g/dL RDW Std Deviation (28.0-62.0) fl RDW Coeff of Shaq (11.0-15.0) % Plt Count (150-400) K/uL MPV (7.40-12.00) fL Neut % (Auto) (48.0-80.0) % Lymph % (Auto) (16.0-40.0) % [place] % (Auto) (0.0-15.0) % Eos % (Auto) (0.0-7.0) % Baso % (Auto) (0.0-1.5) % Neut # (Auto) (1.4-5.7) K/uL Lymph # (Auto) (0.6-2.4) K/uL [place] # (Auto) (0.0-0.8) K/uL Eos # (Auto) (0.0-0.7) K/uL Baso # (Auto) (0.0-0.1) K/uL Nucleated RBC % /100WBC Nucleated RBCs # K/uL Sodium (136-148) mmol/L Potassium (3.5-5.1) mmol/L Chloride (98-107) mmol/L Carbon Dioxide (21.0-32.0) mmol/L BUN (7.0-18.0) mg/dL Creatinine (0.8-1.3) mg/dL Est Cr Clr Drug Dosing mL/min Estimated GFR (MDRD) ml/min Glucose (74-106) mg/dL Lactic Acid (0.4-2.0) mmol/L Calcium (8.5-10.1) mg/dL Total Bilirubin (0.2-1.0) mg/dL AST (15-37) IU/L ALT (14-63) IU/L Alkaline Phosphatase (46-116) U/L Total Protein (6.4-8.2) g/dL Albumin (3.4-5.0) g/dL Globulin (2.6-4.0) g/dL Albumin/Globulin Ratio (0.9-1.6) Crossmatch See Detail Jani Results Last 24 Hours: Microbiology 05/21/21 07:04 Aerobic Blood Culture - Preliminary Blood - Venous - Lab Draw NO GROWTH AFTER 1 DAY Anaerobic Blood Culture - Preliminary NO GROWTH AFTER 1 DAY 05/21/21 05:51 Aerobic Blood Culture - Preliminary Blood - Venous NO GROWTH AFTER 1 DAY Anaerobic Blood Culture - Preliminary Med Orders - Current: Current Medications Piperacillin Sod/Tazobactam (Sod 3.375 gm/ Sodium Chloride) 50 mls @ 100 mls/hr IV Q6H [facility] Last Admin: 05/22/21 09:27 Dose: 100 mls/hr Documented by: Vancomycin HCl 1.25 gm/ Sodium (Chloride) 250 mls @ 166.667 mls/hr IV Q12H [facility] Last Admin: 05/22/21 09:19 Dose: 166.667 mls/hr Documented by: Loperamide HCl (Loperamide 2 Mg Cap) 2 mg PO TID PRN PRN Reason: Diarrhea Last Admin: 05/22/21 06:22 Dose: 2 mg Documented by: Rifaximin (Rifaximin 550 Mg TabPt Own) 550 mg PO BID [facility] Last Admin: 05/22/21 09:33 Dose: 550 mg Documented by: Sodium Chloride (Sodium Chloride 0.9% 10 Ml Syringe) 10 ml FLUSH ASDIRECTED PRN PRN Reason: Keep Vein Open Last Admin: 05/21/21 06:53 Dose: 10 ml Documented by: Sodium Chloride (Sodium Chloride 0.9% 2.5 Ml Syringe) 2.5 ml FLUSH ASDIRECTED PRN PRN Reason: Keep Vein Open Last Admin: 05/21/21 12:25 Dose: 2.5 ml Documented by: Vancomycin HCl (Pharmacy To Dose - Vancomycin) 1 dose .XX ASDIRECTED HUGH Discontinued Medications Acetaminophen (Acetaminophen 325 Mg Tab) 650 mg PO NOW ONE Stop: 05/21/21 06:30 Last Admin: 05/21/21 06:54 Dose: 650 mg Documented by: Hydromorphone HCl (Hydromorphone 1 Mg/Ml Syringe) 1 mg IVPUSH ONETIME ONE Stop: 05/21/21 09:41 Last Admin: 05/21/21 09:51 Dose: 1 mg Documented by: Hydromorphone HCl (Hydromorphone 1 Mg/Ml Syringe) Confirm Administered Dose 1 mg .ROUTE .STK-MED ONE Stop: 05/21/21 09:42 Last Admin: 05/21/21 10:46 Dose: Not Given Documented by: Sodium Chloride (Normal Saline) 1,000 mls @ 999 mls/hr IV .Bolus ONE Stop: 05/21/21 07:26 Last Admin: 05/21/21 06:53 Dose: 999 mls/hr Documented by: Piperacillin Sod/Tazobactam (Sod 3.375 gm/ Sodium Chloride) 50 mls @ 100 mls/hr IV ONETIME ONE Stop: 05/21/21 07:24 Last Admin: 05/21/21 07:49 Dose: 100 mls/hr Documented by: Sodium Chloride (Normal Saline) 1,000 mls @ 999 mls/hr IV .Bolus ONE Stop: 05/21/21 08:09 Last Admin: 05/21/21 07:58 Dose: 999 mls/hr Documented by: Sodium Chloride (Normal Saline) 1,000 mls @ 999 mls/hr IV .Bolus ONE Stop: 05/21/21 08:09 Last Admin: 05/21/21 07:55 Dose: 999 mls/hr Documented by: Albumin Human 25 gm/ Premix 100 mls @ 100 mls/hr IV ONETIME ONE Stop: 05/21/21 09:14 Last Admin: 05/21/21 08:22 Dose: 100 mls/hr Documented by: Norepinephrine Bitartrate (Norepinephr-0.9% Nacl 4 Mg/250) Confirm Administered Dose 4 mg in 250 mls @ as directed IV .STK-MED ONE Stop: 05/21/21 08:16 Last Admin: 05/21/21 10:46 Dose: Not Given Documented by: Albumin Human 12.5 gm/ Premix 50 mls @ 100 mls/hr IV ONETIME ONE Stop: 05/21/21 11:59 Last Admin: 05/21/21 11:33 Dose: 100 mls/hr Documented by: Albumin Human 12.5 gm/ Premix 50 mls @ 100 mls/hr IV ONETIME ONE Stop: 05/21/21 12:44 Last Admin: 05/21/21 12:24 Dose: 100 mls/hr Documented by: Albumin Human 12.5 gm/ Premix 50 mls @ 100 mls/hr IV ONETIME ONE Stop: 05/21/21 14:29 Last Admin: 05/21/21 14:29 Dose: 100 mls/hr Documented by: Vancomycin HCl 1.75 gm/ Premix 350 mls @ 200 mls/hr IV STAT ONE Stop: 05/21/21 20:44 Last Admin: 05/21/21 20:06 Dose: 200 mls/hr Documented by: Vancomycin HCl 1.25 gm/ Sodium (Chloride) 250 mls @ 166.667 mls/hr IV Q12H [facility] Ketorolac Tromethamine (Ketorolac 15 Mg/Ml Sdv) 15 mg IVPUSH ONETIME ONE Stop: 05/21/21 06:27 Last Admin: 05/21/21 06:54 Dose: 15 mg Documented by: Lidocaine HCl (Lidocaine 1% 10 Ml Mdv) 10 ml INJECT ONETIME ONE Stop: 05/21/21 07:36 Last Admin: 05/21/21 10:47 Dose: Not Given Documented by: Ondansetron HCl (Ondansetron 4 Mg/2 Ml Sdv) 4 mg IVPUSH ONETIME ONE Stop: 05/21/21 06:27 Last Admin: 05/21/21 06:54 Dose: 4 mg Documented by: Potassium Chloride (Potassium Chloride 20 Meq Tab.Er) 40 meq PO ONETIME ONE Stop: 05/22/21 10:55 Last Admin: 05/22/21 11:32 Dose: 40 meq Documented by: - Exam General: Alert, Oriented Neck: Supple Lungs: Clear to Auscultation, Normal Respiratory Effort Cardiovascular: Regular Rate, Regular Rhythm GI/Abdominal Exam: Normal Bowel Sounds, Soft, Non-Tender - Patient Data Lab Results Last 24 hrs: Laboratory Results - last 24 hr 05/21/21 05/21/21 05/21/21 Range/Units 19:02 19:02 19:02 WBC 3.10 L (4.0-11.0) K/uL RBC 3.70 L (4.50-5.90) M/uL Hgb 7.6 L (13.0-17.0) g/dL Hct 25.9 L (38.0-50.0) % MCV 70.0 L (80.0-98.0) fL MCH 20.5 L (27.0-32.0) pg MCHC 29.3 L (31.0-37.0) g/dL RDW Std Deviation 58.9 (28.0-62.0) fl RDW Coeff of Shaq 23 H (11.0-15.0) % Plt Count 67 L (150-400) K/uL MPV (7.40-12.00) fL Neut % (Auto) 70.8 (48.0-80.0) % Lymph % (Auto) 13.5 L (16.0-40.0) % [place] % (Auto) 14.8 (0.0-15.0) % Eos % (Auto) 0.6 (0.0-7.0) % Baso % (Auto) 0.3 (0.0-1.5) % Neut # (Auto) 2.2 (1.4-5.7) K/uL Lymph # (Auto) 0.4 L (0.6-2.4) K/uL [place] # (Auto) 0.5 (0.0-0.8) K/uL Eos # (Auto) 0.0 (0.0-0.7) K/uL Baso # (Auto) 0.0 (0.0-0.1) K/uL Nucleated RBC % 0.0 /100WBC Nucleated RBCs # 0 K/uL Sodium 138 (136-148) mmol/L Potassium 3.3 L (3.5-5.1) mmol/L Chloride 103 (98-107) mmol/L Carbon Dioxide 26.9 (21.0-32.0) mmol/L BUN 29 H (7.0-18.0) mg/dL Creatinine 1.6 H (0.8-1.3) mg/dL Est Cr Clr Drug Dosing 62.83 mL/min Estimated GFR (MDRD) 47.2 ml/min Glucose 102 (74-106) mg/dL Lactic Acid 2.1 H* (0.4-2.0) mmol/L Calcium 7.7 L (8.5-10.1) mg/dL Total Bilirubin (0.2-1.0) mg/dL AST (15-37) IU/L ALT (14-63) IU/L Alkaline Phosphatase (46-116) U/L Total Protein (6.4-8.2) g/dL Albumin (3.4-5.0) g/dL Globulin (2.6-4.0) g/dL Albumin/Globulin Ratio (0.9-1.6) Crossmatch 05/22/21 05/22/21 05/22/21 Range/Units 01:00 05:30 05:30 WBC 3.46 L (4.0-11.0) K/uL RBC 3.66 L (4.50-5.90) M/uL Hgb 7.5 L (13.0-17.0) g/dL Hct 25.7 L (38.0-50.0) % MCV 70.2 L (80.0-98.0) fL MCH 20.5 L (27.0-32.0) pg MCHC 29.2 L (31.0-37.0) g/dL RDW Std Deviation 58.8 (28.0-62.0) fl RDW Coeff of Shaq 23 H (11.0-15.0) % Plt Count 54 L (150-400) K/uL MPV (7.40-12.00) fL Neut % (Auto) (48.0-80.0) % Lymph % (Auto) (16.0-40.0) % [place] % (Auto) (0.0-15.0) % Eos % (Auto) (0.0-7.0) % Baso % (Auto) (0.0-1.5) % Neut # (Auto) (1.4-5.7) K/uL Lymph # (Auto) (0.6-2.4) K/uL [place] # (Auto) (0.0-0.8) K/uL Eos # (Auto) (0.0-0.7) K/uL Baso # (Auto) (0.0-0.1) K/uL Nucleated RBC % 0.0 /100WBC Nucleated RBCs # 0 K/uL Sodium 134 L (136-148) mmol/L Potassium 3.2 L (3.5-5.1) mmol/L Chloride 102 (98-107) mmol/L Carbon Dioxide 22.7 (21.0-32.0) mmol/L BUN 29 H (7.0-18.0) mg/dL Creatinine 1.5 H (0.8-1.3) mg/dL Est Cr Clr Drug Dosing 67.02 mL/min Estimated GFR (MDRD) 50.8 ml/min Glucose 101 (74-106) mg/dL Lactic Acid 1.8 (0.4-2.0) mmol/L Calcium 7.5 L (8.5-10.1) mg/dL Total Bilirubin 6.1 H (0.2-1.0) mg/dL AST 71 H (15-37) IU/L ALT 31 (14-63) IU/L Alkaline Phosphatase 345 H (46-116) U/L Total Protein 5.6 L (6.4-8.2) g/dL Albumin 2.0 L (3.4-5.0) g/dL Globulin 3.6 (2.6-4.0) g/dL Albumin/Globulin Ratio 0.6 L (0.9-1.6) Crossmatch 05/22/21 Range/Units 11:30 WBC (4.0-11.0) K/uL RBC (4.50-5.90) M/uL Hgb (13.0-17.0) g/dL Hct (38.0-50.0) % MCV (80.0-98.0) fL MCH (27.0-32.0) pg MCHC (31.0-37.0) g/dL RDW Std Deviation (28.0-62.0) fl RDW Coeff of Shaq (11.0-15.0) % Plt Count (150-400) K/uL MPV (7.40-12.00) fL Neut % (Auto) (48.0-80.0) % Lymph % (Auto) (16.0-40.0) % [place] % (Auto) (0.0-15.0) % Eos % (Auto) (0.0-7.0) % Baso % (Auto) (0.0-1.5) % Neut # (Auto) (1.4-5.7) K/uL Lymph # (Auto) (0.6-2.4) K/uL [place] # (Auto) (0.0-0.8) K/uL Eos # (Auto) (0.0-0.7) K/uL Baso # (Auto) (0.0-0.1) K/uL Nucleated RBC % /100WBC Nucleated RBCs # K/uL Sodium (136-148) mmol/L Potassium (3.5-5.1) mmol/L Chloride (98-107) mmol/L Carbon Dioxide (21.0-32.0) mmol/L BUN (7.0-18.0) mg/dL Creatinine (0.8-1.3) mg/dL Est Cr Clr Drug Dosing mL/min Estimated GFR (MDRD) ml/min Glucose (74-106) mg/dL Lactic Acid (0.4-2.0) mmol/L Calcium (8.5-10.1) mg/dL Total Bilirubin (0.2-1.0) mg/dL AST (15-37) IU/L ALT (14-63) IU/L Alkaline Phosphatase (46-116) U/L Total Protein (6.4-8.2) g/dL Albumin (3.4-5.0) g/dL Globulin (2.6-4.0) g/dL Albumin/Globulin Ratio (0.9-1.6) Crossmatch See Detail Result Diagrams: 05/22/21 05:30 05/22/21 05:30 Jani Results Last 24 hrs: Microbiology 05/21/21 07:04 Aerobic Blood Culture - Preliminary Blood - Venous - Lab Draw NO GROWTH AFTER 1 DAY Anaerobic Blood Culture - Preliminary NO GROWTH AFTER 1 DAY 05/21/21 05:51 Aerobic Blood Culture - Preliminary Blood - Venous NO GROWTH AFTER 1 DAY Anaerobic Blood Culture - Preliminary Sepsis Event Note - Evaluation Sepsis Screening Result: No Definite Risk - Focused Exam Vital Signs: Vital Signs Temp Pulse Resp BP Pulse Ox 05/22/21 09:00 36.3 C 84 16 90/57 L 97 05/22/21 03:35 37.1 C 92 18 105/54 L 100 - Problem List Review Problem List Initiated/Reviewed/Updated: Yes - My Orders Last 24 Hours: My Active Orders 05/21/21 21:57 Loperamide [Imodium] 2 mg PO TID PRN 05/21/21 22:00 Rifaximin [Xifaxan] 550 mg PO BID 05/22/21 08:55 Blood Culture x2 Reflex Set [OM.PC] Stat 05/22/21 09:08 CULTURE BLOOD [BC] Stat 05/22/21 09:15 CULTURE BLOOD [BC] Stat - Plan Plan:: 46 yo male with liver cirrhosis presenting with shortness of breath and abdominal distension from ascities. 8 Liters have been drained from paracen tesis. Patient received albumin for fluid resuscitation due to low blood pressure Blood pressure has been soft but no signs of sepsis Blood cultures still pending, follow-up on the final culture and sensitivity Will obtain repeat blood cultures Continue vancomycin and Zosyn for now We will transfuse 1 unit of PRBC to keep hemoglobin more than 8 No concern of active GI bleed as of now Body fluid results noted, low protein, unlikely exudative We will continue to monitor closely
[2021-05-23] MEDS: Piperacillin/Tazobactam 3.375 GM in Sodium Chloride 0.9% 50 ML IV SCH ×4 (04:01→21:55)
[2021-05-23 06:19] LABS: BLOOD UREA NITROGEN,BUN 26 mg/dL (7.0-18.0); CARBON DIOXIDE,CO2 23.7 mmol/L (21.0-32.0); CHLORIDE,CL 104 mmol/L (98-107); GLUCOSE RANDOM 97 mg/dL (74-106); POTASSIUM,K 3.2 mmol/L (3.5-5.1); SODIUM,NA 135 mmol/L (136-148)
[2021-05-23] MEDS: Potassium Chloride 20 MEQ Tab.ER PO SCH ×2 (08:29→16:06)
[2021-05-23] MEDS: RIFAXIMIN 550 MG PO SCH ×2 (08:29→21:00)
[2021-05-23] MEDS: Loperamide 2 MG Cap PO PRN ×2 (08:31→16:13)
[2021-05-23] MEDS: Furosemide 40 MG Tab PO SCH (12:02)
--- NOTE | 2021-05-23 12:55 | PCM.PN ---
- General Info Date of Service: 05/23/21 Admission Dx/Problem (Free Text): Admission Diagnosis/Problem Admission Diagnosis/Problem Ascites Subjective Update: Patient seen at bedside, no acute distress, eating his breakfast, no abdominal pain, no shortness of breath, patient has no signs of active GI bleed. Patient states that in the past he has had low hemoglobin where he required several units of PRBC. No fever, chills, nausea, vomiting, black stools, bloody stools, hematemesis. Functional Status: Reports: Tolerating Diet, Ambulating, Urinating - Review of Systems General: Denies: Fever, Weakness Pulmonary: Denies: Shortness of Breath, Pleuritic Chest Pain, Cough Cardiovascular: Denies: Chest Pain, Palpitations Gastrointestinal: Denies: Abdominal Pain, Constipation, Decreased Appetite Genitourinary: Denies: Dysuria, Frequency, Burning Musculoskeletal: Denies: Neck Pain, Shoulder Pain, Arm Pain Skin: Denies: Cyanosis, Jaundice, Mottled - Patient Data Vitals - Most Recent: Last Vital Signs Temp 36.2 C 05/23/21 11:36 Pulse 75 05/23/21 11:36 Resp 15 05/23/21 11:36 BP 105/66 05/23/21 11:36 Pulse Ox 97 05/23/21 11:36 Weight - Most Recent: 75.4 kg I&O - Last 24 Hours: Intake & Output 05/22/21 05/23/21 05/23/21 22:59 06:59 14:59 Intake Total 1653 1781 316 Output Total 300 450 Balance 1353 1331 316 Lab Results Last 24 Hours: Laboratory Results - last 24 hr 05/21/21 05/21/21 05/21/21 Range/Units 05:51 08:38 08:38 WBC (4.0-11.0) K/uL RBC (4.50-5.90) M/uL Hgb (13.0-17.0) g/dL Hct (38.0-50.0) % MCV (80.0-98.0) fL MCH (27.0-32.0) pg MCHC (31.0-37.0) g/dL RDW Std Deviation (28.0-62.0) fl RDW Coeff of Shaq (11.0-15.0) % Plt Count (150-400) K/uL Add Manual Diff Neutrophils % (Manual) (48.0-80.0) % Lymphocytes % (Manual) (16.0-40.0) % Monocytes % (Manual) (0.0-15.0) % Eosinophils % (Manual) (0.0-7.0) % Basophils % (Manual) (0.0-1.5) % Nucleated RBC % /100WBC Absolute Seg Neuts (1.4-5.7) Lymphocytes # (Manual) (0.6-2.4) Monocytes # (Manual) (0.0-0.8) Eosinophils # (Manual) (0.0-0.7) Basophils # (Manual) (0.0-0.1) Nucleated RBCs # K/uL Poikilocytosis Anisocytosis Sodium (136-148) mmol/L Potassium (3.5-5.1) mmol/L Chloride (98-107) mmol/L Carbon Dioxide (21.0-32.0) mmol/L BUN (7.0-18.0) mg/dL Creatinine (0.8-1.3) mg/dL Est Cr Clr Drug Dosing mL/min Estimated GFR (MDRD) ml/min Glucose (74-106) mg/dL Calcium (8.5-10.1) mg/dL Phosphorus (2.6-4.7) mg/dL Magnesium (1.8-2.4) mg/dL Procalcitonin 10.59 H ng/mL Fluid Source Periton Periton Fluid Specific Grav Fluid Tot Bilirubin 0.8 mg/dL Fluid Lipase 43 u/L Vancomycin Trough (5.0-10.0) ug/mL Blood Type Antibody Screen Crossmatch 05/21/21 05/22/21 05/23/21 Range/Units 08:38 11:30 05:30 WBC 2.87 L (4.0-11.0) K/uL RBC 3.71 L (4.50-5.90) M/uL Hgb 7.9 L (13.0-17.0) g/dL Hct 26.1 L (38.0-50.0) % MCV 70.4 L (80.0-98.0) fL MCH 21.3 L (27.0-32.0) pg MCHC 30.3 L (31.0-37.0) g/dL RDW Std Deviation 57.3 (28.0-62.0) fl RDW Coeff of Hsaq 22 H (11.0-15.0) % Plt Count 49 L (150-400) K/uL Add Manual Diff YES Neutrophils % (Manual) 43 L (48.0-80.0) % Lymphocytes % (Manual) 17 (16.0-40.0) % Monocytes % (Manual) 28 H (0.0-15.0) % Eosinophils % (Manual) 8 H (0.0-7.0) % Basophils % (Manual) 4 H (0.0-1.5) % Nucleated RBC % 0.0 /100WBC Absolute Seg Neuts 1.2 L (1.4-5.7) Lymphocytes # (Manual) 0.5 L (0.6-2.4) Monocytes # (Manual) 0.8 (0.0-0.8) Eosinophils # (Manual) 0.2 (0.0-0.7) Basophils # (Manual) 0.1 (0.0-0.1) Nucleated RBCs # 0 K/uL Poikilocytosis 1+ SLIGHT Anisocytosis 1+ SLIGHT Sodium (136-148) mmol/L Potassium (3.5-5.1) mmol/L Chloride (98-107) mmol/L Carbon Dioxide (21.0-32.0) mmol/L BUN (7.0-18.0) mg/dL Creatinine (0.8-1.3) mg/dL Est Cr Clr Drug Dosing mL/min Estimated GFR (MDRD) ml/min Glucose (74-106) mg/dL Calcium (8.5-10.1) mg/dL Phosphorus (2.6-4.7) mg/dL Magnesium (1.8-2.4) mg/dL Procalcitonin ng/mL Fluid Source Periton Fluid Specific Grav 1.009 Fluid Tot Bilirubin mg/dL Fluid Lipase u/L Vancomycin Trough (5.0-10.0) ug/mL Blood Type O POSITIVE Antibody Screen NEGATIVE Crossmatch See Detail 05/23/21 05/23/21 Range/Units 05:30 07:03 WBC (4.0-11.0) K/uL RBC (4.50-5.90) M/uL Hgb (13.0-17.0) g/dL Hct (38.0-50.0) % MCV (80.0-98.0) fL MCH (27.0-32.0) pg MCHC (31.0-37.0) g/dL RDW Std Deviation (28.0-62.0) fl RDW Coeff of Shaq (11.0-15.0) % Plt Count (150-400) K/uL Add Manual Diff Neutrophils % (Manual) (48.0-80.0) % Lymphocytes % (Manual) (16.0-40.0) % Monocytes % (Manual) (0.0-15.0) % Eosinophils % (Manual) (0.0-7.0) % Basophils % (Manual) (0.0-1.5) % Nucleated RBC % /100WBC Absolute Seg Neuts (1.4-5.7) Lymphocytes # (Manual) (0.6-2.4) Monocytes # (Manual) (0.0-0.8) Eosinophils # (Manual) (0.0-0.7) Basophils # (Manual) (0.0-0.1) Nucleated RBCs # K/uL Poikilocytosis Anisocytosis Sodium 135 L (136-148) mmol/L Potassium 3.2 L (3.5-5.1) mmol/L Chloride 104 (98-107) mmol/L Carbon Dioxide 23.7 (21.0-32.0) mmol/L BUN 26 H (7.0-18.0) mg/dL Creatinine 1.2 (0.8-1.3) mg/dL Est Cr Clr Drug Dosing 83.78 mL/min Estimated GFR (MDRD) > 60.0 ml/min Glucose 97 (74-106) mg/dL Calcium 7.3 L (8.5-10.1) mg/dL Phosphorus 3.6 (2.6-4.7) mg/dL Magnesium 2.0 (1.8-2.4) mg/dL Procalcitonin ng/mL Fluid Source Fluid Specific Grav Fluid Tot Bilirubin mg/dL Fluid Lipase u/L Vancomycin Trough 19.6 H (5.0-10.0) ug/mL Blood Type Antibody Screen Crossmatch Jani Results Last 24 Hours: Microbiology 05/21/21 08:38 Gram Stain - Final Peritoneal Fluid 05/22/21 09:15 Aerobic Blood Culture - Preliminary Blood - Venous - Lab Draw NO GROWTH AFTER 1 DAY Anaerobic Blood Culture - Preliminary NO GROWTH AFTER 1 DAY 05/22/21 09:08 Aerobic Blood Culture - Preliminary Blood - Venous NO GROWTH AFTER 1 DAY Anaerobic Blood Culture - Preliminary NO GROWTH AFTER 1 DAY 05/21/21 05:51 Blood Culture Identification Panel - Preliminary Blood - Venous Gram Negative Rods Gram Positive Rods 05/21/21 07:04 Aerobic Blood Culture - Preliminary Blood - Venous - Lab Draw NO GROWTH AFTER 2 DAYS Anaerobic Blood Culture - Preliminary NO GROWTH AFTER 2 DAYS 05/21/21 05:51 Aerobic Blood Culture - Preliminary Blood - Venous NO GROWTH AFTER 2 DAYS Anaerobic Blood Culture - Preliminary Med Orders - Current: Current Medications Furosemide (Furosemide 40 Mg Tab) 40 mg PO DAILY [facility] Last Admin: 05/23/21 12:02 Dose: 40 mg Documented by: Piperacillin Sod/Tazobactam (Sod 3.375 gm/ Sodium Chloride) 50 mls @ 100 mls/hr IV Q6H [facility] Last Admin: 05/23/21 10:07 Dose: 100 mls/hr Documented by: Vancomycin HCl 1.25 gm/ Sodium (Chloride) 250 mls @ 166.667 mls/hr IV Q12H [facility] Last Admin: 05/23/21 08:22 Dose: 166.667 mls/hr Documented by: Loperamide HCl (Loperamide 2 Mg Cap) 2 mg PO TID PRN PRN Reason: Diarrhea Last Admin: 05/23/21 08:31 Dose: 2 mg Documented by: Potassium Chloride (Potassium Chloride 20 Meq Tab.Er) 40 meq PO BID@0900,1700 [facility] Stop: 05/23/21 17:01 Last Admin: 05/23/21 08:29 Dose: 40 meq Documented by: Rifaximin (Rifaximin 550 Mg TabPt Own) 550 mg PO BID [facility] Last Admin: 05/23/21 08:29 Dose: 550 mg Documented by: Sodium Chloride (Sodium Chloride 0.9% 10 Ml Syringe) 10 ml FLUSH ASDIRECTED PRN PRN Reason: Keep Vein Open Last Admin: 05/21/21 06:53 Dose: 10 ml Documented by: Sodium Chloride (Sodium Chloride 0.9% 2.5 Ml Syringe) 2.5 ml FLUSH ASDIRECTED PRN PRN Reason: Keep Vein Open Last Admin: 05/21/21 12:25 Dose: 2.5 ml Documented by: Vancomycin HCl (Pharmacy To Dose - Vancomycin) 1 dose .XX ASDIRECTED [facility]GH Discontinued Medications Acetaminophen (Acetaminophen 325 Mg Tab) 650 mg PO NOW ONE Stop: 05/21/21 06:30 Last Admin: 05/21/21 06:54 Dose: 650 mg Documented by: Hydromorphone HCl (Hydromorphone 1 Mg/Ml Syringe) 1 mg IVPUSH ONETIME ONE Stop: 05/21/21 09:41 Last Admin: 05/21/21 09:51 Dose: 1 mg Documented by: Hydromorphone HCl (Hydromorphone 1 Mg/Ml Syringe) Confirm Administered Dose 1 mg .ROUTE .STK-MED ONE Stop: 05/21/21 09:42 Last Admin: 05/21/21 10:46 Dose: Not Given Documented by: Sodium Chloride (Normal Saline) 1,000 mls @ 999 mls/hr IV .Bolus ONE Stop: 05/21/21 07:26 Last Admin: 05/21/21 06:53 Dose: 999 mls/hr Documented by: Piperacillin Sod/Tazobactam (Sod 3.375 gm/ Sodium Chloride) 50 mls @ 100 mls/hr IV ONETIME ONE Stop: 05/21/21 07:24 Last Admin: 05/21/21 07:49 Dose: 100 mls/hr Documented by: Sodium Chloride (Normal Saline) 1,000 mls @ 999 mls/hr IV .Bolus ONE Stop: 05/21/21 08:09 Last Admin: 05/21/21 07:58 Dose: 999 mls/hr Documented by: Sodium Chloride (Normal Saline) 1,000 mls @ 999 mls/hr IV .Bolus ONE Stop: 05/21/21 08:09 Last Admin: 05/21/21 07:55 Dose: 999 mls/hr Documented by: Albumin Human 25 gm/ Premix 100 mls @ 100 mls/hr IV ONETIME ONE Stop: 05/21/21 09:14 Last Admin: 05/21/21 08:22 Dose: 100 mls/hr Documented by: Norepinephrine Bitartrate (Norepinephr-0.9% Nacl 4 Mg/250) Confirm Administered Dose 4 mg in 250 mls @ as directed IV .STK-MED ONE Stop: 05/21/21 08:16 Last Admin: 05/21/21 10:46 Dose: Not Given Documented by: Albumin Human 12.5 gm/ Premix 50 mls @ 100 mls/hr IV ONETIME ONE Stop: 05/21/21 11:59 Last Admin: 05/21/21 11:33 Dose: 100 mls/hr Documented by: Albumin Human 12.5 gm/ Premix 50 mls @ 100 mls/hr IV ONETIME ONE Stop: 05/21/21 12:44 Last Admin: 05/21/21 12:24 Dose: 100 mls/hr Documented by: Albumin Human 12.5 gm/ Premix 50 mls @ 100 mls/hr IV ONETIME ONE Stop: 05/21/21 14:29 Last Admin: 05/21/21 14:29 Dose: 100 mls/hr Documented by: Vancomycin HCl 1.75 gm/ Premix 350 mls @ 200 mls/hr IV STAT ONE Stop: 05/21/21 20:44 Last Admin: 05/21/21 20:06 Dose: 200 mls/hr Documented by: Vancomycin HCl 1.25 gm/ Sodium (Chloride) 250 mls @ 166.667 mls/hr IV Q12H [facility] Ketorolac Tromethamine (Ketorolac 15 Mg/Ml Sdv) 15 mg IVPUSH ONETIME ONE Stop: 05/21/21 06:27 Last Admin: 05/21/21 06:54 Dose: 15 mg Documented by: Lidocaine HCl (Lidocaine 1% 10 Ml Mdv) 10 ml INJECT ONETIME ONE Stop: 05/21/21 07:36 Last Admin: 05/21/21 10:47 Dose: Not Given Documented by: Ondansetron HCl (Ondansetron 4 Mg/2 Ml Sdv) 4 mg IVPUSH ONETIME ONE Stop: 05/21/21 06:27 Last Admin: 05/21/21 06:54 Dose: 4 mg Documented by: Potassium Chloride (Potassium Chloride 20 Meq Tab.Er) 40 meq PO ONETIME ONE Stop: 05/22/21 10:55 Last Admin: 05/22/21 11:32 Dose: 40 meq Documented by: - Exam General: Alert, Oriented Lungs: Clear to Auscultation, Normal Respiratory Effort Cardiovascular: Regular Rate, Regular Rhythm GI/Abdominal Exam: Normal Bowel Sounds, Soft, Non-Tender - Patient Data Lab Results Last 24 hrs: Laboratory Results - last 24 hr 05/21/21 05/21/21 05/21/21 Range/Units 05:51 08:38 08:38 WBC (4.0-11.0) K/uL RBC (4.50-5.90) M/uL Hgb (13.0-17.0) g/dL Hct (38.0-50.0) % MCV (80.0-98.0) fL MCH (27.0-32.0) pg MCHC (31.0-37.0) g/dL RDW Std Deviation (28.0-62.0) fl RDW Coeff of Shaq (11.0-15.0) % Plt Count (150-400) K/uL Add Manual Diff Neutrophils % (Manual) (48.0-80.0) % Lymphocytes % (Manual) (16.0-40.0) % Monocytes % (Manual) (0.0-15.0) % Eosinophils % (Manual) (0.0-7.0) % Basophils % (Manual) (0.0-1.5) % Nucleated RBC % /100WBC Absolute Seg Neuts (1.4-5.7) Lymphocytes # (Manual) (0.6-2.4) Monocytes # (Manual) (0.0-0.8) Eosinophils # (Manual) (0.0-0.7) Basophils # (Manual) (0.0-0.1) Nucleated RBCs # K/uL Poikilocytosis Anisocytosis Sodium (136-148) mmol/L Potassium (3.5-5.1) mmol/L Chloride (98-107) mmol/L Carbon Dioxide (21.0-32.0) mmol/L BUN (7.0-18.0) mg/dL Creatinine (0.8-1.3) mg/dL Est Cr Clr Drug Dosing mL/min Estimated GFR (MDRD) ml/min Glucose (74-106) mg/dL Calcium (8.5-10.1) mg/dL Phosphorus (2.6-4.7) mg/dL Magnesium (1.8-2.4) mg/dL Procalcitonin 10.59 H ng/mL Fluid Source Periton Periton Fluid Specific Grav Fluid Tot Bilirubin 0.8 mg/dL Fluid Lipase 43 u/L Vancomycin Trough (5.0-10.0) ug/mL Blood Type Antibody Screen Crossmatch 05/21/21 05/22/21 05/23/21 Range/Units 08:38 11:30 05:30 WBC 2.87 L (4.0-11.0) K/uL RBC 3.71 L (4.50-5.90) M/uL Hgb 7.9 L (13.0-17.0) g/dL Hct 26.1 L (38.0-50.0) % MCV 70.4 L (80.0-98.0) fL MCH 21.3 L (27.0-32.0) pg MCHC 30.3 L (31.0-37.0) g/dL RDW Std Deviation 57.3 (28.0-62.0) fl RDW Coeff of Shaq 22 H (11.0-15.0) % Plt Count 49 L (150-400) K/uL Add Manual Diff YES Neutrophils % (Manual) 43 L (48.0-80.0) % Lymphocytes % (Manual) 17 (16.0-40.0) % Monocytes % (Manual) 28 H (0.0-15.0) % Eosinophils % (Manual) 8 H (0.0-7.0) % Basophils % (Manual) 4 H (0.0-1.5) % Nucleated RBC % 0.0 /100WBC Absolute Seg Neuts 1.2 L (1.4-5.7) Lymphocytes # (Manual) 0.5 L (0.6-2.4) Monocytes # (Manual) 0.8 (0.0-0.8) Eosinophils # (Manual) 0.2 (0.0-0.7) Basophils # (Manual) 0.1 (0.0-0.1) Nucleated RBCs # 0 K/uL Poikilocytosis 1+ SLIGHT Anisocytosis 1+ SLIGHT Sodium (136-148) mmol/L Potassium (3.5-5.1) mmol/L Chloride (98-107) mmol/L Carbon Dioxide (21.0-32.0) mmol/L BUN (7.0-18.0) mg/dL Creatinine (0.8-1.3) mg/dL Est Cr Clr Drug Dosing mL/min Estimated GFR (MDRD) ml/min Glucose (74-106) mg/dL Calcium (8.5-10.1) mg/dL Phosphorus (2.6-4.7) mg/dL Magnesium (1.8-2.4) mg/dL Procalcitonin ng/mL Fluid Source Periton Fluid Specific Grav 1.009 Fluid Tot Bilirubin mg/dL Fluid Lipase u/L Vancomycin Trough (5.0-10.0) ug/mL Blood Type O POSITIVE Antibody Screen NEGATIVE Crossmatch See Detail 05/23/21 05/23/21 Range/Units 05:30 07:03 WBC (4.0-11.0) K/uL RBC (4.50-5.90) M/uL Hgb (13.0-17.0) g/dL Hct (38.0-50.0) % MCV (80.0-98.0) fL MCH (27.0-32.0) pg MCHC (31.0-37.0) g/dL RDW Std Deviation (28.0-62.0) fl RDW Coeff of Shaq (11.0-15.0) % Plt Count (150-400) K/uL Add Manual Diff Neutrophils % (Manual) (48.0-80.0) % Lymphocytes % (Manual) (16.0-40.0) % Monocytes % (Manual) (0.0-15.0) % Eosinophils % (Manual) (0.0-7.0) % Basophils % (Manual) (0.0-1.5) % Nucleated RBC % /100WBC Absolute Seg Neuts (1.4-5.7) Lymphocytes # (Manual) (0.6-2.4) Monocytes # (Manual) (0.0-0.8) Eosinophils # (Manual) (0.0-0.7) Basophils # (Manual) (0.0-0.1) Nucleated RBCs # K/uL Poikilocytosis Anisocytosis Sodium 135 L (136-148) mmol/L Potassium 3.2 L (3.5-5.1) mmol/L Chloride 104 (98-107) mmol/L Carbon Dioxide 23.7 (21.0-32.0) mmol/L BUN 26 H (7.0-18.0) mg/dL Creatinine 1.2 (0.8-1.3) mg/dL Est Cr Clr Drug Dosing 83.78 mL/min Estimated GFR (MDRD) > 60.0 ml/min Glucose 97 (74-106) mg/dL Calcium 7.3 L (8.5-10.1) mg/dL Phosphorus 3.6 (2.6-4.7) mg/dL Magnesium 2.0 (1.8-2.4) mg/dL Procalcitonin ng/mL Fluid Source Fluid Specific Grav Fluid Tot Bilirubin mg/dL Fluid Lipase u/L Vancomycin Trough 19.6 H (5.0-10.0) ug/mL Blood Type Antibody Screen Crossmatch Result Diagrams: 05/23/21 05:30 05/23/21 05:30 Jani Results Last 24 hrs: Microbiology 05/21/21 08:38 Gram Stain - Final Peritoneal Fluid 05/22/21 09:15 Aerobic Blood Culture - Preliminary Blood - Venous - Lab Draw NO GROWTH AFTER 1 DAY Anaerobic Blood Culture - Preliminary NO GROWTH AFTER 1 DAY 05/22/21 09:08 Aerobic Blood Culture - Preliminary Blood - Venous NO GROWTH AFTER 1 DAY Anaerobic Blood Culture - Preliminary NO GROWTH AFTER 1 DAY 05/21/21 05:51 Blood Culture Identification Panel - Preliminary Blood - Venous Gram Negative Rods Gram Positive Rods 05/21/21 07:04 Aerobic Blood Culture - Preliminary Blood - Venous - Lab Draw NO GROWTH AFTER 2 DAYS Anaerobic Blood Culture - Preliminary NO GROWTH AFTER 2 DAYS 05/21/21 05:51 Aerobic Blood Culture - Preliminary Blood - Venous NO GROWTH AFTER 2 DAYS Anaerobic Blood Culture - Preliminary Sepsis Event Note - Evaluation Sepsis Screening Result: No Definite Risk - Focused Exam Vital Signs: Vital Signs Temp Temp Pulse Resp BP Pulse Ox 05/23/21 11:36 36.2 C 75 15 105/66 97 05/23/21 11:21 36.4 C 76 14 98/70 97 05/23/21 08:20 35.9 C L 74 14 101/62 98 05/23/21 03:56 36.1 C 81 14 97/60 97 - Problem List & Annotations (1) Bacteremia SNOMED Code(s): 6830962 Code(s): R78.81 - BACTEREMIA Status: Acute Current Visit: Yes (2) Cirrhosis SNOMED Code(s): 03073056 Code(s): K74.60 - UNSPECIFIED CIRRHOSIS OF LIVER Status: Acute Current Visit: Yes (3) Ascites SNOMED Code(s): 469062714 Code(s): R18.8 - OTHER ASCITES Status: Acute Current Visit: Yes (4) S/P abdominal paracentesis SNOMED Code(s): 021036581 Code(s): Z98.890 - OTHER SPECIFIED POSTPROCEDURAL STATES Status: Acute Current Visit: Yes (5) Sepsis SNOMED Code(s): 60406921 Code(s): A41.9 - SEPSIS, UNSPECIFIED ORGANISM Status: Acute Current Visit: Yes - Problem List Review Problem List Initiated/Reviewed/Updated: Yes - Plan Plan:: 46 yo male with liver cirrhosis presenting with shortness of breath and abdominal distension from ascities. 8 Liters have been drained from paracentesis. Blood pressure has been soft but improving Blood cultures still pending, gm positive and negative growth. follow-up on the final culture and sensitivity f/u on repeat blood cultures Continue vancomycin and Zosyn for now We will transfuse 1 unit of PRBC to keep hemoglobin more than 8 No concern of active GI bleed as of now Body fluid results noted, low protein, unlikely exudative, culture pending We will continue to monitor closely
[2021-05-24] MEDS: Piperacillin/Tazobactam 3.375 GM in Sodium Chloride 0.9% 50 ML IV SCH ×4 (04:00→21:45)
[2021-05-24 06:54] LABS: BLOOD UREA NITROGEN,BUN 27 mg/dL (7.0-18.0); CARBON DIOXIDE,CO2 22.9 mmol/L (21.0-32.0); CHLORIDE,CL 107 mmol/L (98-107); GLUCOSE RANDOM 91 mg/dL (74-106); POTASSIUM,K 4.8 mmol/L (3.5-5.1); SODIUM,NA 137 mmol/L (136-148)
[2021-05-24] MEDS: Furosemide 40 MG Tab PO SCH ×2 (08:46→13:02)
[2021-05-24] MEDS: RIFAXIMIN 550 MG PO SCH ×2 (08:56→21:00)
[2021-05-24] MEDS: Loperamide 2 MG Cap PO PRN (13:02)
--- NOTE | 2021-05-24 14:00 | PCM.PN ---
- General Info Date of Service: 05/24/21 Admission Dx/Problem (Free Text): Admission Diagnosis/Problem Admission Diagnosis/Problem Ascites Subjective Update: Patient seen at bedside, no acute distress, eating his breakfast, no abdominal pain, no shortness of breath, Hb is much better today, states he feels a little bolted in his belly today. Has been eating and drinking well Functional Status: Reports: Tolerating Diet, Ambulating, Urinating - Review of Systems General: Denies: Fever, Weakness, Fatigue Pulmonary: Denies: Shortness of Breath, Pleuritic Chest Pain Gastrointestinal: Reports: Flatus. Denies: Abdominal Pain, Constipation, Decreased Appetite, Diarrhea Genitourinary: Denies: Dysuria, Frequency, Burning, Pain Musculoskeletal: Denies: Neck Pain, Shoulder Pain, Arm Pain Skin: Denies: Cyanosis, Jaundice, Mottled, Pallor - Patient Data Vitals - Most Recent: Last Vital Signs Temp 35.7 C L 05/24/21 11:52 Pulse 81 05/24/21 11:52 Resp 22 H 05/24/21 11:52 BP 98/71 05/24/21 11:52 Pulse Ox 99 05/24/21 11:52 Weight - Most Recent: 75.4 kg I&O - Last 24 Hours: Intake & Output 05/23/21 05/24/21 05/24/21 22:59 06:59 14:59 Intake Total 1220 700 300 Output Total 540 500 Balance 680 200 300 Lab Results Last 24 Hours: Laboratory Results - last 24 hr 05/22/21 05/24/21 05/24/21 Range/Units 11:30 05:59 05:59 WBC 3.30 L (4.0-11.0) K/uL RBC 4.19 L (4.50-5.90) M/uL Hgb 9.2 L (13.0-17.0) g/dL Hct 29.5 L (38.0-50.0) % MCV 70.4 L (80.0-98.0) fL MCH 22.0 L (27.0-32.0) pg MCHC 31.2 (31.0-37.0) g/dL RDW Std Deviation 57.5 (28.0-62.0) fl RDW Coeff of Shaq 22 H (11.0-15.0) % Plt Count 51 L (150-400) K/uL Neut % (Auto) 59.7 (48.0-80.0) % Lymph % (Auto) 19.4 (16.0-40.0) % Leake % (Auto) 12.7 (0.0-15.0) % Eos % (Auto) 6.4 (0.0-7.0) % Baso % (Auto) 1.8 H (0.0-1.5) % Neut # (Auto) 2.0 (1.4-5.7) K/uL Lymph # (Auto) 0.6 (0.6-2.4) K/uL Leake # (Auto) 0.4 (0.0-0.8) K/uL Eos # (Auto) 0.2 (0.0-0.7) K/uL Baso # (Auto) 0.1 (0.0-0.1) K/uL Nucleated RBC % 0.0 /100WBC Nucleated RBCs # 0 K/uL Sodium 137 (136-148) mmol/L Potassium 4.8 (3.5-5.1) mmol/L Chloride 107 (98-107) mmol/L Carbon Dioxide 22.9 (21.0-32.0) mmol/L BUN 27 H (7.0-18.0) mg/dL Creatinine 1.2 (0.8-1.3) mg/dL Est Cr Clr Drug Dosing 83.78 mL/min Estimated GFR (MDRD) > 60.0 ml/min Glucose 91 (74-106) mg/dL Calcium 7.6 L (8.5-10.1) mg/dL Phosphorus 3.6 (2.6-4.7) mg/dL Magnesium 1.9 (1.8-2.4) mg/dL Total Bilirubin 4.8 H (0.2-1.0) mg/dL AST 64 H (15-37) IU/L ALT 30 (14-63) IU/L Alkaline Phosphatase 458 H (46-116) U/L Total Protein 5.7 L (6.4-8.2) g/dL Albumin 1.9 L (3.4-5.0) g/dL Globulin 3.8 (2.6-4.0) g/dL Albumin/Globulin Ratio 0.5 L (0.9-1.6) Crossmatch See Detail Jani Results Last 24 Hours: Microbiology 05/21/21 05:51 Blood Culture Identification Panel - Preliminary Blood - Venous Escherichia Coli Probable Anaerobic Gp Bacilli 05/21/21 08:38 Aerobic Culture - Preliminary Peritoneal Fluid Gram Stain - Final Anaerobic Culture - Preliminary 05/22/21 09:15 Aerobic Blood Culture - Preliminary Blood - Venous - Lab Draw NO GROWTH AFTER 2 DAYS Anaerobic Blood Culture - Preliminary NO GROWTH AFTER 2 DAYS 05/22/21 09:08 Aerobic Blood Culture - Preliminary Blood - Venous NO GROWTH AFTER 2 DAYS Anaerobic Blood Culture - Preliminary NO GROWTH AFTER 2 DAYS 05/21/21 07:04 Aerobic Blood Culture - Preliminary Blood - Venous - Lab Draw NO GROWTH AFTER 3 DAYS Anaerobic Blood Culture - Preliminary NO GROWTH AFTER 3 DAYS 05/21/21 05:51 Aerobic Blood Culture - Preliminary Blood - Venous NO GROWTH AFTER 3 DAYS Anaerobic Blood Culture - Preliminary Med Orders - Current: Current Medications Furosemide (Furosemide 40 Mg Tab) 40 mg PO BIDDIURETIC [facility] Last Admin: 05/24/21 13:02 Dose: 40 mg Documented by: Piperacillin Sod/Tazobactam (Sod 3.375 gm/ Sodium Chloride) 50 mls @ 100 mls/hr IV Q6H [facility] Last Admin: 05/24/21 10:29 Dose: 100 mls/hr Documented by: Vancomycin HCl 1.25 gm/ Sodium (Chloride) 250 mls @ 166.667 mls/hr IV Q12H [facility] Last Admin: 05/24/21 08:45 Dose: 166.667 mls/hr Documented by: Loperamide HCl (Loperamide 2 Mg Cap) 2 mg PO TID PRN PRN Reason: Diarrhea Last Admin: 05/24/21 13:02 Dose: 2 mg Documented by: Eplerenone [Inspra] (50 Mg Tablet) 2 each PO BID [facility] Rifaximin (Rifaximin 550 Mg TabPt Own) 550 mg PO BID [facility] Last Admin: 05/24/21 08:56 Dose: 550 mg Documented by: Sodium Chloride (Sodium Chloride 0.9% 10 Ml Syringe) 10 ml FLUSH ASDIRECTED PRN PRN Reason: Keep Vein Open Last Admin: 05/21/21 06:53 Dose: 10 ml Documented by: Sodium Chloride (Sodium Chloride 0.9% 2.5 Ml Syringe) 2.5 ml FLUSH ASDIRECTED PRN PRN Reason: Keep Vein Open Last Admin: 05/21/21 12:25 Dose: 2.5 ml Documented by: Vancomycin HCl (Pharmacy To Dose - Vancomycin) 1 dose .XX ASDIRECTED [facility]GH Discontinued Medications Acetaminophen (Acetaminophen 325 Mg Tab) 650 mg PO NOW ONE Stop: 05/21/21 06:30 Last Admin: 05/21/21 06:54 Dose: 650 mg Documented by: Furosemide (Furosemide 40 Mg Tab) 40 mg PO DAILY [facility] Last Admin: 05/24/21 08:46 Dose: 40 mg Documented by: Hydromorphone HCl (Hydromorphone 1 Mg/Ml Syringe) 1 mg IVPUSH ONETIME ONE Stop: 05/21/21 09:41 Last Admin: 05/21/21 09:51 Dose: 1 mg Documented by: Hydromorphone HCl (Hydromorphone 1 Mg/Ml Syringe) Confirm Administered Dose 1 mg .ROUTE .STK-MED ONE Stop: 05/21/21 09:42 Last Admin: 05/21/21 10:46 Dose: Not Given Documented by: Sodium Chloride (Normal Saline) 1,000 mls @ 999 mls/hr IV .Bolus ONE Stop: 05/21/21 07:26 Last Admin: 05/21/21 06:53 Dose: 999 mls/hr Documented by: Piperacillin Sod/Tazobactam (Sod 3.375 gm/ Sodium Chloride) 50 mls @ 100 mls/hr IV ONETIME ONE Stop: 05/21/21 07:24 Last Admin: 05/21/21 07:49 Dose: 100 mls/hr Documented by: Sodium Chloride (Normal Saline) 1,000 mls @ 999 mls/hr IV .Bolus ONE Stop: 05/21/21 08:09 Last Admin: 05/21/21 07:58 Dose: 999 mls/hr Documented by: Sodium Chloride (Normal Saline) 1,000 mls @ 999 mls/hr IV .Bolus ONE Stop: 05/21/21 08:09 Last Admin: 05/21/21 07:55 Dose: 999 mls/hr Documented by: Albumin Human 25 gm/ Premix 100 mls @ 100 mls/hr IV ONETIME ONE Stop: 05/21/21 09:14 Last Admin: 05/21/21 08:22 Dose: 100 mls/hr Documented by: Norepinephrine Bitartrate (Norepinephr-0.9% Nacl 4 Mg/250) Confirm Administered Dose 4 mg in 250 mls @ as directed IV .STK-MED ONE Stop: 05/21/21 08:16 Last Admin: 05/21/21 10:46 Dose: Not Given Documented by: Albumin Human 12.5 gm/ Premix 50 mls @ 100 mls/hr IV ONETIME ONE Stop: 05/21/21 11:59 Last Admin: 05/21/21 11:33 Dose: 100 mls/hr Documented by: Albumin Human 12.5 gm/ Premix 50 mls @ 100 mls/hr IV ONETIME ONE Stop: 05/21/21 12:44 Last Admin: 05/21/21 12:24 Dose: 100 mls/hr Documented by: Albumin Human 12.5 gm/ Premix 50 mls @ 100 mls/hr IV ONETIME ONE Stop: 05/21/21 14:29 Last Admin: 05/21/21 14:29 Dose: 100 mls/hr Documented by: Vancomycin HCl 1.75 gm/ Premix 350 mls @ 200 mls/hr IV STAT ONE Stop: 05/21/21 20:44 Last Admin: 05/21/21 20:06 Dose: 200 mls/hr Documented by: Vancomycin HCl 1.25 gm/ Sodium (Chloride) 250 mls @ 166.667 mls/hr IV Q12H [facility] Ketorolac Tromethamine (Ketorolac 15 Mg/Ml Sdv) 15 mg IVPUSH ONETIME ONE Stop: 05/21/21 06:27 Last Admin: 05/21/21 06:54 Dose: 15 mg Documented by: Lidocaine HCl (Lidocaine 1% 10 Ml Mdv) 10 ml INJECT ONETIME ONE Stop: 05/21/21 07:36 Last Admin: 05/21/21 10:47 Dose: Not Given Documented by: Ondansetron HCl (Ondansetron 4 Mg/2 Ml Sdv) 4 mg IVPUSH ONETIME ONE Stop: 05/21/21 06:27 Last Admin: 05/21/21 06:54 Dose: 4 mg Documented by: Potassium Chloride (Potassium Chloride 20 Meq Tab.Er) 40 meq PO ONETIME ONE Stop: 05/22/21 10:55 Last Admin: 05/22/21 11:32 Dose: 40 meq Documented by: Potassium Chloride (Potassium Chloride 20 Meq Tab.Er) 40 meq PO BID@0900,1700 HUGH Stop: 05/23/21 17:01 Last Admin: 05/23/21 16:06 Dose: 40 meq Documented by: - Exam General: Alert, Oriented Lungs: Clear to Auscultation, Normal Respiratory Effort Cardiovascular: Regular Rate, Regular Rhythm GI/Abdominal Exam: Normal Bowel Sounds, Soft, Non-Tender. No: Distended, Rebound, Tender, Hepatomegaly, Splenomegaly Extremities: Normal Inspection, Normal Range of Motion - Patient Data Lab Results Last 24 hrs: Laboratory Results - last 24 hr 05/22/21 05/24/21 05/24/21 Range/Units 11:30 05:59 05:59 WBC 3.30 L (4.0-11.0) K/uL RBC 4.19 L (4.50-5.90) M/uL Hgb 9.2 L (13.0-17.0) g/dL Hct 29.5 L (38.0-50.0) % MCV 70.4 L (80.0-98.0) fL MCH 22.0 L (27.0-32.0) pg MCHC 31.2 (31.0-37.0) g/dL RDW Std Deviation 57.5 (28.0-62.0) fl RDW Coeff of Shaq 22 H (11.0-15.0) % Plt Count 51 L (150-400) K/uL Neut % (Auto) 59.7 (48.0-80.0) % Lymph % (Auto) 19.4 (16.0-40.0) % Leake % (Auto) 12.7 (0.0-15.0) % Eos % (Auto) 6.4 (0.0-7.0) % Baso % (Auto) 1.8 H (0.0-1.5) % Neut # (Auto) 2.0 (1.4-5.7) K/uL Lymph # (Auto) 0.6 (0.6-2.4) K/uL Leake # (Auto) 0.4 (0.0-0.8) K/uL Eos # (Auto) 0.2 (0.0-0.7) K/uL Baso # (Auto) 0.1 (0.0-0.1) K/uL Nucleated RBC % 0.0 /100WBC Nucleated RBCs # 0 K/uL Sodium 137 (136-148) mmol/L Potassium 4.8 (3.5-5.1) mmol/L Chloride 107 (98-107) mmol/L Carbon Dioxide 22.9 (21.0-32.0) mmol/L BUN 27 H (7.0-18.0) mg/dL Creatinine 1.2 (0.8-1.3) mg/dL Est Cr Clr Drug Dosing 83.78 mL/min Estimated GFR (MDRD) > 60.0 ml/min Glucose 91 (74-106) mg/dL Calcium 7.6 L (8.5-10.1) mg/dL Phosphorus 3.6 (2.6-4.7) mg/dL Magnesium 1.9 (1.8-2.4) mg/dL Total Bilirubin 4.8 H (0.2-1.0) mg/dL AST 64 H (15-37) IU/L ALT 30 (14-63) IU/L Alkaline Phosphatase 458 H (46-116) U/L Total Protein 5.7 L (6.4-8.2) g/dL Albumin 1.9 L (3.4-5.0) g/dL Globulin 3.8 (2.6-4.0) g/dL Albumin/Globulin Ratio 0.5 L (0.9-1.6) Crossmatch See Detail Result Diagrams: 05/24/21 05:59 05/24/21 05:59 Jani Results Last 24 hrs: Microbiology 05/21/21 05:51 Blood Culture Identification Panel - Preliminary Blood - Venous Escherichia Coli Probable Anaerobic Gp Bacilli 05/21/21 08:38 Aerobic Culture - Preliminary Peritoneal Fluid Gram Stain - Final Anaerobic Culture - Preliminary 05/22/21 09:15 Aerobic Blood Culture - Preliminary Blood - Venous - Lab Draw NO GROWTH AFTER 2 DAYS Anaerobic Blood Culture - Preliminary NO GROWTH AFTER 2 DAYS 05/22/21 09:08 Aerobic Blood Culture - Preliminary Blood - Venous NO GROWTH AFTER 2 DAYS Anaerobic Blood Culture - Preliminary NO GROWTH AFTER 2 DAYS 05/21/21 07:04 Aerobic Blood Culture - Preliminary Blood - Venous - Lab Draw NO GROWTH AFTER 3 DAYS Anaerobic Blood Culture - Preliminary NO GROWTH AFTER 3 DAYS 05/21/21 05:51 Aerobic Blood Culture - Preliminary Blood - Venous NO GROWTH AFTER 3 DAYS Anaerobic Blood Culture - Preliminary Sepsis Event Note - Evaluation Sepsis Screening Result: No Definite Risk - Focused Exam Vital Signs: Vital Signs Temp Pulse Resp BP Pulse Ox 05/24/21 11:52 35.7 C L 81 22 H 98/71 99 05/24/21 08:00 35.7 C L 80 20 96/56 L 97 05/24/21 04:00 36.4 C 79 17 101/61 98 - Problem List & Annotations (1) Bacteremia SNOMED Code(s): 4277822 Code(s): R78.81 - BACTEREMIA Status: Acute Current Visit: Yes (2) Cirrhosis SNOMED Code(s): 35999285 Code(s): K74.60 - UNSPECIFIED CIRRHOSIS OF LIVER Status: Acute Current Visit: Yes (3) Ascites SNOMED Code(s): 147453351 Code(s): R18.8 - OTHER ASCITES Status: Acute Current Visit: Yes (4) S/P abdominal paracentesis SNOMED Code(s): 238116266 Code(s): Z98.890 - OTHER SPECIFIED POSTPROCEDURAL STATES Status: Acute Current Visit: Yes (5) Sepsis SNOMED Code(s): 77705446 Code(s): A41.9 - SEPSIS, UNSPECIFIED ORGANISM Status: Acute Current Visit: Yes - Problem List Review Problem List Initiated/Reviewed/Updated: Yes - Plan Plan:: 46 yo male with liver cirrhosis presenting with shortness of breath and abdo cailin distension from ascities. 8 Liters have been drained from paracentesis. Blood pressure improved Blood cultures results for organism 1 noted, organism 2 culture sensitivity still pending f/u on repeat blood cultures, so far negative Continue vancomycin and Zosyn for now Hemoglobin much better posttransfusion No concern of active GI bleed as of now Body fluid results noted, low protein, unlikely exudative, culture pending Resume patient's diuretics home dose to prevent volume overload
[2021-05-24] MEDS: EPLERENONE 50 MG PO SCH ×2 (14:06→21:00)
[2021-05-25] MEDS: Piperacillin/Tazobactam 3.375 GM in Sodium Chloride 0.9% 50 ML IV SCH ×4 (03:43→21:45)
[2021-05-25 06:44] LABS: CARBON DIOXIDE,CO2 22.8 mmol/L (21.0-32.0)
[2021-05-25] MEDS: Furosemide 40 MG Tab PO SCH ×2 (08:41→13:53)
[2021-05-25] MEDS: RIFAXIMIN 550 MG PO SCH ×2 (08:41→21:00)
[2021-05-25] MEDS: EPLERENONE 50 MG PO SCH ×2 (08:53→10:41)
--- NOTE | 2021-05-25 12:38 | PCM.PN ---
- General Info Date of Service: 05/25/21 Admission Dx/Problem (Free Text): Admission Diagnosis/Problem Admission Diagnosis/Problem Ascites Subjective Update: Patient seen at bedside, no acute distress, eating his breakfast, no abdominal pain, no shortness of breath, Hb is much better today, states he feels a little bolted in his belly today. Has been eating and drinking well Functional Status: Reports: Pain Controlled, Tolerating Diet - Review of Systems General: Denies: Fever, Weakness, Fatigue HEENT: Denies: Contact Lenses Pulmonary: Denies: Shortness of Breath, Pleuritic Chest Pain Cardiovascular: Denies: Chest Pain, Palpitations Gastrointestinal: Denies: Abdominal Pain, Constipation, Decreased Appetite Genitourinary: Denies: Dysuria, Frequency, Burning Musculoskeletal: Denies: Neck Pain, Shoulder Pain, Arm Pain Skin: Denies: Cyanosis, Jaundice, Mottled Neurological: Denies: Confusion, Dizziness, Headache - Patient Data Vitals - Most Recent: Last Vital Signs Temp 36.3 C 05/25/21 08:00 Pulse 74 05/25/21 08:00 Resp 16 05/25/21 08:00 BP 107/62 05/25/21 10:43 Pulse Ox 99 05/25/21 08:00 Weight - Most Recent: 75.4 kg I&O - Last 24 Hours: Intake & Output 05/24/21 05/25/21 05/25/21 22:59 06:59 14:59 Intake Total 490 1000 Output Total 800 550 Balance -310 450 Lab Results Last 24 Hours: Laboratory Results - last 24 hr 05/25/21 05/25/21 05/25/21 Range/Units 05:52 05:52 07:29 WBC 3.61 L (4.0-11.0) K/uL RBC 3.93 L (4.50-5.90) M/uL Hgb 8.5 L (13.0-17.0) g/dL Hct 27.5 L (38.0-50.0) % MCV 70.0 L (80.0-98.0) fL MCH 21.6 L (27.0-32.0) pg MCHC 30.9 L (31.0-37.0) g/dL RDW Std Deviation 57.3 (28.0-62.0) fl RDW Coeff of Shaq 22 H (11.0-15.0) % Plt Count 51 L (150-400) K/uL Neut % (Auto) 58.0 (48.0-80.0) % Lymph % (Auto) 17.5 (16.0-40.0) % Mcpherson % (Auto) 15.0 (0.0-15.0) % Eos % (Auto) 7.8 H (0.0-7.0) % Baso % (Auto) 1.7 H (0.0-1.5) % Neut # (Auto) 2.1 (1.4-5.7) K/uL Lymph # (Auto) 0.6 (0.6-2.4) K/uL Mcpherson # (Auto) 0.5 (0.0-0.8) K/uL Eos # (Auto) 0.3 (0.0-0.7) K/uL Baso # (Auto) 0.1 (0.0-0.1) K/uL Nucleated RBC % 0.0 /100WBC Nucleated RBCs # 0 K/uL Sodium 136 (136-148) mmol/L Potassium 4.0 (3.5-5.1) mmol/L Chloride 106 (98-107) mmol/L Carbon Dioxide 22.8 (21.0-32.0) mmol/L BUN 32 H (7.0-18.0) mg/dL Creatinine 1.3 (0.8-1.3) mg/dL Est Cr Clr Drug Dosing 77.33 mL/min Estimated GFR (MDRD) 60.0 ml/min Glucose 90 (74-106) mg/dL Calcium 7.4 L (8.5-10.1) mg/dL Phosphorus 4.1 (2.6-4.7) mg/dL Magnesium 1.8 (1.8-2.4) mg/dL Total Bilirubin 4.5 H (0.2-1.0) mg/dL AST 68 H (15-37) IU/L ALT 31 (14-63) IU/L Alkaline Phosphatase 449 H (46-116) U/L Total Protein 5.4 L (6.4-8.2) g/dL Albumin 1.8 L (3.4-5.0) g/dL Globulin 3.6 (2.6-4.0) g/dL Albumin/Globulin Ratio 0.5 L (0.9-1.6) Vancomycin Trough 25.6 H (5.0-10.0) ug/mL Jani Results Last 24 Hours: Microbiology 05/22/21 09:15 Aerobic Blood Culture - Preliminary Blood - Venous - Lab Draw NO GROWTH AFTER 3 DAYS Anaerobic Blood Culture - Preliminary NO GROWTH AFTER 3 DAYS 05/22/21 09:08 Aerobic Blood Culture - Preliminary Blood - Venous NO GROWTH AFTER 3 DAYS Anaerobic Blood Culture - Preliminary NO GROWTH AFTER 3 DAYS 05/21/21 08:38 Aerobic Culture - Preliminary Peritoneal Fluid Gram Stain - Final Anaerobic Culture - Preliminary 05/21/21 07:04 Aerobic Blood Culture - Preliminary Blood - Venous - Lab Draw NO GROWTH AFTER 4 DAYS Anaerobic Blood Culture - Preliminary NO GROWTH AFTER 4 DAYS 05/21/21 05:51 Aerobic Blood Culture - Preliminary Blood - Venous NO GROWTH AFTER 4 DAYS Anaerobic Blood Culture - Preliminary 05/21/21 05:51 Blood Culture Identification Panel - Preliminary Blood - Venous Escherichia Coli Probable Anaerobic Gp Bacilli Med Orders - Current: Current Medications Furosemide (Furosemide 40 Mg Tab) 40 mg PO BIDDIURETIC [facility] Last Admin: 05/25/21 08:41 Dose: 40 mg Documented by: Piperacillin Sod/Tazobactam (Sod 3.375 gm/ Sodium Chloride) 50 mls @ 100 mls/hr IV Q6H [facility] Last Admin: 05/25/21 08:45 Dose: 100 mls/hr Documented by: Vancomycin HCl 1.25 gm/ Sodium (Chloride) 250 mls @ 166.667 mls/hr IV Q12H [facility] Last Admin: 05/25/21 11:02 Dose: Not Given Documented by: Loperamide HCl (Loperamide 2 Mg Cap) 2 mg PO TID PRN PRN Reason: Diarrhea Last Admin: 05/24/21 13:02 Dose: 2 mg Documented by: Eplerenone [Inspra] (50 Mg Tablet) 2 each PO BID [facility] Last Admin: 05/25/21 10:41 Dose: 2 each Documented by: Rifaximin (Rifaximin 550 Mg TabPt Own) 550 mg PO BID [facility] Last Admin: 05/25/21 08:41 Dose: 550 mg Documented by: Sodium Chloride (Sodium Chloride 0.9% 10 Ml Syringe) 10 ml FLUSH ASDIRECTED PRN PRN Reason: Keep Vein Open Last Admin: 05/21/21 06:53 Dose: 10 ml Documented by: Sodium Chloride (Sodium Chloride 0.9% 2.5 Ml Syringe) 2.5 ml FLUSH ASDIRECTED PRN PRN Reason: Keep Vein Open Last Admin: 05/21/21 12:25 Dose: 2.5 ml Documented by: Vancomycin HCl (Pharmacy To Dose - Vancomycin) 1 dose .XX ASDIRECTED [facility] Discontinued Medications Acetaminophen (Acetaminophen 325 Mg Tab) 650 mg PO NOW ONE Stop: 05/21/21 06:30 Last Admin: 05/21/21 06:54 Dose: 650 mg Documented by: Furosemide (Furosemide 40 Mg Tab) 40 mg PO DAILY [facility] Last Admin: 05/24/21 08:46 Dose: 40 mg Documented by: Hydromorphone HCl (Hydromorphone 1 Mg/Ml Syringe) 1 mg IVPUSH ONETIME ONE Stop: 05/21/21 09:41 Last Admin: 05/21/21 09:51 Dose: 1 mg Documented by: Hydromorphone HCl (Hydromorphone 1 Mg/Ml Syringe) Confirm Administered Dose 1 mg .ROUTE .STK-MED ONE Stop: 05/21/21 09:42 Last Admin: 05/21/21 10:46 Dose: Not Given Documented by: Sodium Chloride (Normal Saline) 1,000 mls @ 999 mls/hr IV .Bolus ONE Stop: 05/21/21 07:26 Last Admin: 05/21/21 06:53 Dose: 999 mls/hr Documented by: Piperacillin Sod/Tazobactam (Sod 3.375 gm/ Sodium Chloride) 50 mls @ 100 mls/hr IV ONETIME ONE Stop: 05/21/21 07:24 Last Admin: 05/21/21 07:49 Dose: 100 mls/hr Documented by: Sodium Chloride (Normal Saline) 1,000 mls @ 999 mls/hr IV .Bolus ONE Stop: 05/21/21 08:09 Last Admin: 05/21/21 07:58 Dose: 999 mls/hr Documented by: Sodium Chloride (Normal Saline) 1,000 mls @ 999 mls/hr IV .Bolus ONE Stop: 05/21/21 08:09 Last Admin: 05/21/21 07:55 Dose: 999 mls/hr Documented by: Albumin Human 25 gm/ Premix 100 mls @ 100 mls/hr IV ONETIME ONE Stop: 05/21/21 09:14 Last Admin: 05/21/21 08:22 Dose: 100 mls/hr Documented by: Norepinephrine Bitartrate (Norepinephr-0.9% Nacl 4 Mg/250) Confirm Administered Dose 4 mg in 250 mls @ as directed IV .STK-MED ONE Stop: 05/21/21 08:16 Last Admin: 05/21/21 10:46 Dose: Not Given Documented by: Albumin Human 12.5 gm/ Premix 50 mls @ 100 mls/hr IV ONETIME ONE Stop: 05/21/21 11:59 Last Admin: 05/21/21 11:33 Dose: 100 mls/hr Documented by: Albumin Human 12.5 gm/ Premix 50 mls @ 100 mls/hr IV ONETIME ONE Stop: 05/21/21 12:44 Last Admin: 05/21/21 12:24 Dose: 100 mls/hr Documented by: Albumin Human 12.5 gm/ Premix 50 mls @ 100 mls/hr IV ONETIME ONE Stop: 05/21/21 14:29 Last Admin: 05/21/21 14:29 Dose: 100 mls/hr Documented by: Vancomycin HCl 1.75 gm/ Premix 350 mls @ 200 mls/hr IV STAT ONE Stop: 05/21/21 20:44 Last Admin: 05/21/21 20:06 Dose: 200 mls/hr Documented by: Vancomycin HCl 1.25 gm/ Sodium (Chloride) 250 mls @ 166.667 mls/hr IV Q12H [facility] Ketorolac Tromethamine (Ketorolac 15 Mg/Ml Sdv) 15 mg IVPUSH ONETIME ONE Stop: 05/21/21 06:27 Last Admin: 05/21/21 06:54 Dose: 15 mg Documented by: Lidocaine HCl (Lidocaine 1% 10 Ml Mdv) 10 ml INJECT ONETIME ONE Stop: 05/21/21 07:36 Last Admin: 05/21/21 10:47 Dose: Not Given Documented by: Ondansetron HCl (Ondansetron 4 Mg/2 Ml Sdv) 4 mg IVPUSH ONETIME ONE Stop: 05/21/21 06:27 Last Admin: 05/21/21 06:54 Dose: 4 mg Documented by: Potassium Chloride (Potassium Chloride 20 Meq Tab.Er) 40 meq PO ONETIME ONE Stop: 05/22/21 10:55 Last Admin: 05/22/21 11:32 Dose: 40 meq Documented by: Potassium Chloride (Potassium Chloride 20 Meq Tab.Er) 40 meq PO BID@0900,1700 [facility] Stop: 05/23/21 17:01 Last Admin: 05/23/21 16:06 Dose: 40 meq Documented by: - Exam General: Alert, Oriented Neck: Supple, Trachea Midline Lungs: Clear to Auscultation, Normal Respiratory Effort Cardiovascular: Regular Rate, Regular Rhythm GI/Abdominal Exam: Normal Bowel Sounds, Soft, Non-Tender Extremities: Normal Inspection, Normal Range of Motion - Patient Data Lab Results Last 24 hrs: Laboratory Results - last 24 hr 05/25/21 05/25/21 05/25/21 Range/Units 05:52 05:52 07:29 WBC 3.61 L (4.0-11.0) K/uL RBC 3.93 L (4.50-5.90) M/uL Hgb 8.5 L (13.0-17.0) g/dL Hct 27.5 L (38.0-50.0) % MCV 70.0 L (80.0-98.0) fL MCH 21.6 L (27.0-32.0) pg MCHC 30.9 L (31.0-37.0) g/dL RDW Std Deviation 57.3 (28.0-62.0) fl RDW Coeff of Shaq 22 H (11.0-15.0) % Plt Count 51 L (150-400) K/uL Neut % (Auto) 58.0 (48.0-80.0) % Lymph % (Auto) 17.5 (16.0-40.0) % Mcpherson % (Auto) 15.0 (0.0-15.0) % Eos % (Auto) 7.8 H (0.0-7.0) % Baso % (Auto) 1.7 H (0.0-1.5) % Neut # (Auto) 2.1 (1.4-5.7) K/uL Lymph # (Auto) 0.6 (0.6-2.4) K/uL Mcpherson # (Auto) 0.5 (0.0-0.8) K/uL Eos # (Auto) 0.3 (0.0-0.7) K/uL Baso # (Auto) 0.1 (0.0-0.1) K/uL Nucleated RBC % 0.0 /100WBC Nucleated RBCs # 0 K/uL Sodium 136 (136-148) mmol/L Potassium 4.0 (3.5-5.1) mmol/L Chloride 106 (98-107) mmol/L Carbon Dioxide 22.8 (21.0-32.0) mmol/L BUN 32 H (7.0-18.0) mg/dL Creatinine 1.3 (0.8-1.3) mg/dL Est Cr Clr Drug Dosing 77.33 mL/min Estimated GFR (MDRD) 60.0 ml/min Glucose 90 (74-106) mg/dL Calcium 7.4 L (8.5-10.1) mg/dL Phosphorus 4.1 (2.6-4.7) mg/dL Magnesium 1.8 (1.8-2.4) mg/dL Total Bilirubin 4.5 H (0.2-1.0) mg/dL AST 68 H (15-37) IU/L ALT 31 (14-63) IU/L Alkaline Phosphatase 449 H (46-116) U/L Total Protein 5.4 L (6.4-8.2) g/dL Albumin 1.8 L (3.4-5.0) g/dL Globulin 3.6 (2.6-4.0) g/dL Albumin/Globulin Ratio 0.5 L (0.9-1.6) Vancomycin Trough 25.6 H (5.0-10.0) ug/mL Result Diagrams: 05/25/21 05:52 05/25/21 05:52 Jani Results Last 24 hrs: Microbiology 05/22/21 09:15 Aerobic Blood Culture - Preliminary Blood - Venous - Lab Draw NO GROWTH AFTER 3 DAYS Anaerobic Blood Culture - Preliminary NO GROWTH AFTER 3 DAYS 05/22/21 09:08 Aerobic Blood Culture - Preliminary Blood - Venous NO GROWTH AFTER 3 DAYS Anaerobic Blood Culture - Preliminary NO GROWTH AFTER 3 DAYS 05/21/21 08:38 Aerobic Culture - Preliminary Peritoneal Fluid Gram Stain - Final Anaerobic Culture - Preliminary 05/21/21 07:04 Aerobic Blood Culture - Preliminary Blood - Venous - Lab Draw NO GROWTH AFTER 4 DAYS Anaerobic Blood Culture - Preliminary NO GROWTH AFTER 4 DAYS 05/21/21 05:51 Aerobic Blood Culture - Preliminary Blood - Venous NO GROWTH AFTER 4 DAYS Anaerobic Blood Culture - Preliminary 05/21/21 05:51 Blood Culture Identification Panel - Preliminary Blood - Venous Escherichia Coli Probable Anaerobic Gp Bacilli Sepsis Event Note - Evaluation Sepsis Screening Result: No Definite Risk - Focused Exam Vital Signs: Vital Signs Temp Pulse Resp BP Pulse Ox 05/25/21 10:43 107/62 05/25/21 08:00 36.3 C 74 16 93/53 L 99 05/25/21 04:00 36.2 C 83 16 102/67 96 - Problem List & Annotations (1) Bacteremia SNOMED Code(s): 4003380 Code(s): R78.81 - BACTEREMIA Status: Acute Current Visit: Yes (2) Cirrhosis SNOMED Code(s): 00291012 Code(s): K74.60 - UNSPECIFIED CIRRHOSIS OF LIVER Status: Acute Current Visit: Yes (3) Ascites SNOMED Code(s): 733194087 Code(s): R18.8 - OTHER ASCITES Status: Acute Current Visit: Yes (4) S/P abdominal paracentesis SNOMED Code(s): 230498555 Code(s): Z98.890 - OTHER SPECIFIED POSTPROCEDURAL STATES Status: Acute Current Visit: Yes (5) Sepsis SNOMED Code(s): 34805544 Code(s): A41.9 - SEPSIS, UNSPECIFIED ORGANISM Status: Acute Current Visit: Yes - Problem List Review Problem List Initiated/Reviewed/Updated: Yes - Plan Plan:: 46 yo male with liver cirrhosis presenting with shortness of breath and abdominal distension from ascities. 8 Liters have been drained from paracentesi s. Blood pressure improved Blood cultures results for organism 1 noted, organism 2 culture sensitivity still pending f/u on repeat blood cultures, so far negative Continue vancomycin and Zosyn for now Hemoglobin much better posttransfusion No concern of active GI bleed as of now Body fluid results noted, low protein, unlikely exudative, culture pending Resume patient's diuretics home dose to prevent volume overload
[2021-05-25] MEDS: Loperamide 2 MG Cap PO PRN (22:17)
[2021-05-26] MEDS: Piperacillin/Tazobactam 3.375 GM in Sodium Chloride 0.9% 50 ML IV SCH ×2 (04:00→10:08)
[2021-05-26] MEDS ORDERED: Eplerenone 25 MG Tab PO SCH (09:00)
[2021-05-26] MEDS: Furosemide 40 MG Tab PO SCH (09:43)
[2021-05-26] MEDS: RIFAXIMIN 550 MG PO SCH (10:08)
--- NOTE | 2021-05-26 13:01 | PCM.DCSUM1 ---
Discharge Summary - Hospital Course Diagnosis: Stroke: No - Discharge Data Discharge Date: 05/26/21 Discharge Disposition: Home, Self-Care 01 Condition: Stable - Referral to Home Health Primary Care Physician: PCP None - Discharge Diagnosis/Problem(s) (1) Bacteremia SNOMED Code(s): 1933865 ICD Code: R78.81 - BACTEREMIA Status: Acute Current Visit: Yes (2) Cirrhosis SNOMED Code(s): 46766259 ICD Code: K74.60 - UNSPECIFIED CIRRHOSIS OF LIVER Status: Acute Current Visit: Yes (3) Ascites SNOMED Code(s): 286486219 ICD Code: R18.8 - OTHER ASCITES Status: Acute Current Visit: Yes (4) S/P abdominal paracentesis SNOMED Code(s): 140878446 ICD Code: Z98.890 - OTHER SPECIFIED POSTPROCEDURAL STATES Status: Acute Current Visit: Yes (5) Sepsis SNOMED Code(s): 40359362 ICD Code: A41.9 - SEPSIS, UNSPECIFIED ORGANISM Status: Acute Current Visit: Yes - Patient Instructions Diet: Regular Diet as Tolerated Activity: As Tolerated Driving: May Drive Today Showering/Bathing: May Shower Notify Provider of: Fever, Increased Pain, Swelling and Redness, Drainage, Nausea and/or Vomiting - Discharge Plan *PRESCRIPTION DRUG MONITORING PROGRAM REVIEWED*: No *COPY OF PRESCRIPTION DRUG MONITORING REPORT IN PATIENT SHILPI: No Prescriptions/Med Rec: Amoxicillin/Clavulanate K [Augmentin 500-125 MG] 1 tab PO Q8H 9 Days #27 tab metroNIDAZOLE [Flagyl] 500 mg PO Q8H 14 Days #42 tab Home Medications: Home Meds Cholecalciferol (Vitamin D3) [Vitamin D3] 2,000 unit PO DAILY 05/21/21 [History] Eplerenone [Inspra] 100 mg PO BID 05/21/21 [History] Furosemide [Lasix] 40 mg PO BID 05/21/21 [History] Loperamide [Imodium] 2 mg PO TID PRN 05/21/21 [History] Rifaximin [Xifaxan] 550 mg PO BID 05/21/21 [History] methocarbamoL [Methocarbamol] 500 mg PO TID PRN 05/21/21 [History] Amoxicillin/Clavulanate K [Augmentin 500-125 MG] 1 tab PO Q8H 9 Days #27 tab 07/23/21 [Rx] metroNIDAZOLE [Flagyl] 500 mg PO Q8H 14 Days #42 tab 05/26/21 [Rx] Patient Handouts: Paracentesis, Care After, Cirrhosis, Paracentesis - Patient Data Vitals - Most Recent: Last Vital Signs Temp 36.9 C 05/26/21 11:00 Pulse 84 05/26/21 11:00 Resp 16 05/26/21 11:00 BP 119/80 05/26/21 11:00 Pulse Ox 100 05/26/21 11:00 Weight - Most Recent: 75.4 kg I&O - Last 24 hours: Intake & Output 05/25/21 05/26/21 05/26/21 22:59 06:59 14:59 Intake Total 1250 1140 Output Total 1400 1000 Balance -150 140 Lab Results - Last 24 hrs: Laboratory Results - last 24 hr 05/26/21 Range/Units 08:35 Vancomycin Trough 22.4 H (5.0-10.0) ug/mL STEPHANIE Results - Last 24 hrs: Microbiology 05/21/21 08:38 Aerobic Culture - Preliminary Peritoneal Fluid Gram Stain - Final Anaerobic Culture - Preliminary 05/21/21 05:51 Blood Culture Identification Panel - Final Blood - Venous Escherichia Coli Probable Clostridium Species 05/22/21 09:15 Aerobic Blood Culture - Preliminary Blood - Venous - Lab Draw NO GROWTH AFTER 4 DAYS Anaerobic Blood Culture - Preliminary NO GROWTH AFTER 4 DAYS 05/22/21 09:08 Aerobic Blood Culture - Preliminary Blood - Venous NO GROWTH AFTER 4 DAYS Anaerobic Blood Culture - Preliminary NO GROWTH AFTER 4 DAYS 05/21/21 07:04 Aerobic Blood Culture - Final Blood - Venous - Lab Draw NO GROWTH AFTER 5 DAYS Anaerobic Blood Culture - Final NO GROWTH AFTER 5 DAYS 05/21/21 05:51 Aerobic Blood Culture - Final Blood - Venous NO GROWTH AFTER 5 DAYS Anaerobic Blood Culture - Preliminary Med Orders - Current: Current Medications Eplerenone (Eplerenone 25 Mg Tab) 100 mg PO DAILY [facility] Last Admin: 05/26/21 09:45 Dose: Not Given Documented by: Furosemide (Furosemide 40 Mg Tab) 40 mg PO BIDDIURETIC [facility] Last Admin: 05/26/21 09:43 Dose: Not Given Documented by: Piperacillin Sod/Tazobactam (Sod 3.375 gm/ Sodium Chloride) 50 mls @ 100 mls/hr IV Q6H [facility] Last Admin: 05/26/21 10:08 Dose: 100 mls/hr Documented by: Vancomycin HCl 1.25 gm/ Sodium (Chloride) 250 mls @ 166.667 mls/hr IV Q12H [facility] Last Admin: 05/26/21 11:20 Dose: Not Given Documented by: Loperamide HCl (Loperamide 2 Mg Cap) 2 mg PO TID PRN PRN Reason: Diarrhea Last Admin: 05/25/21 22:17 Dose: 2 mg Documented by: Rifaximin (Rifaximin 550 Mg TabPt Own) 550 mg PO BID [facility] Last Admin: 05/26/21 10:08 Dose: 550 mg Documented by: Sodium Chloride (Sodium Chloride 0.9% 10 Ml Syringe) 10 ml FLUSH ASDIRECTED PRN PRN Reason: Keep Vein Open Last Admin: 05/21/21 06:53 Dose: 10 ml Documented by: Sodium Chloride (Sodium Chloride 0.9% 2.5 Ml Syringe) 2.5 ml FLUSH ASDIRECTED PRN PRN Reason: Keep Vein Open Last Admin: 05/21/21 12:25 Dose: 2.5 ml Documented by: Vancomycin HCl (Pharmacy To Dose - Vancomycin) 1 dose .XX ASDIRECTED [facility] Discontinued Medications Acetaminophen (Acetaminophen 325 Mg Tab) 650 mg PO NOW ONE Stop: 05/21/21 06:30 Last Admin: 05/21/21 06:54 Dose: 650 mg Documented by: Furosemide (Furosemide 40 Mg Tab) 40 mg PO DAILY [facility] Last Admin: 05/24/21 08:46 Dose: 40 mg Documented by: Hydromorphone HCl (Hydromorphone 1 Mg/Ml Syringe) 1 mg IVPUSH ONETIME ONE Stop: 05/21/21 09:41 Last Admin: 05/21/21 09:51 Dose: 1 mg Documented by: Hydromorphone HCl (Hydromorphone 1 Mg/Ml Syringe) Confirm Administered Dose 1 mg .ROUTE .STK-MED ONE Stop: 05/21/21 09:42 Last Admin: 05/21/21 10:46 Dose: Not Given Documented by: Sodium Chloride (Normal Saline) 1,000 mls @ 999 mls/hr IV .Bolus ONE Stop: 05/21/21 07:26 Last Admin: 05/21/21 06:53 Dose: 999 mls/hr Documented by: Piperacillin Sod/Tazobactam (Sod 3.375 gm/ Sodium Chloride) 50 mls @ 100 mls/hr IV ONETIME ONE Stop: 05/21/21 07:24 Last Admin: 05/21/21 07:49 Dose: 100 mls/hr Documented by: Sodium Chloride (Normal Saline) 1,000 mls @ 999 mls/hr IV .Bolus ONE Stop: 05/21/21 08:09 Last Admin: 05/21/21 07:58 Dose: 999 mls/hr Documented by: Sodium Chloride (Normal Saline) 1,000 mls @ 999 mls/hr IV .Bolus ONE Stop: 05/21/21 08:09 Last Admin: 05/21/21 07:55 Dose: 999 mls/hr Documented by: Albumin Human 25 gm/ Premix 100 mls @ 100 mls/hr IV ONETIME ONE Stop: 05/21/21 09:14 Last Admin: 05/21/21 08:22 Dose: 100 mls/hr Documented by: Norepinephrine Bitartrate (Norepinephr-0.9% Nacl 4 Mg/250) Confirm Administered Dose 4 mg in 250 mls @ as directed IV .STK-MED ONE Stop: 05/21/21 08:16 Last Admin: 05/21/21 10:46 Dose: Not Given Documented by: Albumin Human 12.5 gm/ Premix 50 mls @ 100 mls/hr IV ONETIME ONE Stop: 05/21/21 11:59 Last Admin: 05/21/21 11:33 Dose: 100 mls/hr Documented by: Albumin Human 12.5 gm/ Premix 50 mls @ 100 mls/hr IV ONETIME ONE Stop: 05/21/21 12:44 Last Admin: 05/21/21 12:24 Dose: 100 mls/hr Documented by: Albumin Human 12.5 gm/ Premix 50 mls @ 100 mls/hr IV ONETIME ONE Stop: 05/21/21 14:29 Last Admin: 05/21/21 14:29 Dose: 100 mls/hr Documented by: Vancomycin HCl 1.75 gm/ Premix 350 mls @ 200 mls/hr IV STAT ONE Stop: 05/21/21 20:44 Last Admin: 05/21/21 20:06 Dose: 200 mls/hr Documented by: Vancomycin HCl 1.25 gm/ Sodium (Chloride) 250 mls @ 166.667 mls/hr IV Q12H [facility] Ketorolac Tromethamine (Ketorolac 15 Mg/Ml Sdv) 15 mg IVPUSH ONETIME ONE Stop: 05/21/21 06:27 Last Admin: 05/21/21 06:54 Dose: 15 mg Documented by: Lidocaine HCl (Lidocaine 1% 10 Ml Mdv) 10 ml INJECT ONETIME ONE Stop: 05/21/21 07:36 Last Admin: 05/21/21 10:47 Dose: Not Given Documented by: Ondansetron HCl (Ondansetron 4 Mg/2 Ml Sdv) 4 mg IVPUSH ONETIME ONE Stop: 05/21/21 06:27 Last Admin: 05/21/21 06:54 Dose: 4 mg Documented by: Eplerenone [Inspra] (50 Mg Tablet) 2 each PO BID [facility] Last Admin: 05/25/21 10:41 Dose: 2 each Documented by: Potassium Chloride (Potassium Chloride 20 Meq Tab.Er) 40 meq PO ONETIME ONE Stop: 05/22/21 10:55 Last Admin: 05/22/21 11:32 Dose: 40 meq Documented by: Potassium Chloride (Potassium Chloride 20 Meq Tab.Er) 40 meq PO BID@0900,1700 [facility] Stop: 05/23/21 17:01 Last Admin: 05/23/21 16:06 Dose: 40 meq Documented by: Discharge Operative/Procedures - Procedures Performed Paracentesis Indication: ascites
== END 2021-05-26 13:50 | disposition home or self-care (01) | DRG 872 ==
LOC: MW.ED 05:33 → MW.MS 12:24 → OBSVTOIN 19:59 → MW.MS 21:32
PROVIDERS: ADMIT Internal Medicine; ATTEND Internal Medicine
PROC: 30233N1 Transfusion of Nonautologous Red Blood Cells into Peripheral Vein, Percutaneous Approach (ICD-10-PCS; principal; 2021-05-21)
PROC: 0W9G3ZX Drainage of Peritoneal Cavity, Percutaneous Approach, Diagnostic (ICD-10-PCS; 2021-05-21)
DX: A41.9 Sepsis, unspecified organism (principal); R18.8 Other ascites; K74.60 Unspecified cirrhosis of liver; Z98.890 Other specified postprocedural states; Z79.899 Other long term (current) drug therapy; Z91.018 Allergy to other foods; Z88.8 Allergy status to other drugs, medicaments and biological substances; Z20.822 Contact with and (suspected) exposure to COVID-19
CPT/HCPCS: 31500; 36415; 36430; 49083; 71045; 71045-26; 80048; 80053; 80202; 81003; 82945; 83605; 83690; 83735; 83986; 84100; 84145; 84157; 84315; 85025; 85027; 85379; 85610; 85730; 86850; 86900; 86901; 86920; 86921; 86922; 87040; 87070; 87075; 87077; 87186; 87205; 89050; 93005; 93010; 96365; 96366; 96367; 96375; 99285-25; 99291; A9270-GY; J1170; J1885; J2405; J2543; J3370; J7030; J7050; P9016; P9047; U0002